=== PATIENT | female | born 1960 | race Caucasian/White ===

== ENCOUNTER 2016-12-20 07:14 | Inpatient (IN) | payer OTHER ==
[2016-12-20] MEDS ORDERED: Insulin REGULAR(*) 1 UNITS UNIT IV PUSH ONE (08:07)
[2016-12-20 08:19] LABS: Hematocrit 39 % (35-47); Mean Corpuscular HGB Conc 34 g/dl (31-36); Mean Corpuscular Hemoglobin 32 pg (27-31); Mean Corpuscular Volume 94 fL (80-97); Mean Platelet Volume 8 um3 (7.4-10.4); Red Blood Count 4.12 10^6/ul (4.0-5.4); Red Cell Distribution Width 15 % (10.5-15)
[2016-12-20 08:30] LABS: Albumin 3.3 g/dL (3.2-5.2); BUN/Creatinine Ratio 24.8 (8-20); C Reactive Protein 50.67 mg/L (< 5.00); Calcium 10.2 mg/dL (8.6-10.3); EGFR African American 66.3 (>60); EGFR Non-African American 51.6 (>60); Globulin 3.8 g/dL (2-4); Potassium 3.1 mmol/L (3.5-5.0); Total Bilirubin 0.3 mg/dL (0.2-1.0); Total Protein 7.1 g/dL (6.4-8.9)
[2016-12-20 08:32] LABS: Troponin I 0.01 ng/mL (<0.04)
[2016-12-20 08:46] LABS: Venous Bicarbonate HCO3 32.3 mmol/L (24-28)
[2016-12-20] MEDS: Ondansetron INJ* 2 MG/ML VIAL IV ONE ×2 (08:49→09:18)
[2016-12-20] MEDS: NS 0.9% 1000 ML* 3,000 ML IV ONE ×2 (08:49→11:03)
[2016-12-20] MEDS ORDERED: Cefepime(*) 2 GM in NS 0.9% 50 ML* 50 ML IVPB ONE (09:30)
[2016-12-20] MEDS ORDERED: Iodixanol* (CONTRAST) 320 MG/ML 100 ML SDV IV ONE (09:32)
[2016-12-20] MEDS ORDERED: ceFAZolin 2 GM PREMIX(*) 0 GM/0 ML BAG IVPB ONE (10:01)
[2016-12-20 10:08] LABS: Urine Bacteria 1+ (Absent); Urine Bilirubin Negative (Negative); Urine Glucose 3+(>=500 mg/dL) (Negative); Urine Nitrite Negative (Negative)
[2016-12-20] MEDS ORDERED: Ondansetron INJ* 2 MG/ML VIAL IV PRN (11:15)
[2016-12-20] MEDS ORDERED: Dextrose 50% Syringe 50 ML* 25 GM/50 ML SYRINGE IV PUSH PRN (11:15)
[2016-12-20] MEDS ORDERED: Acetaminophen TAB* 325 MG PO PRN (11:15)
[2016-12-20] MEDS ORDERED: NS 0.9% 1000 ML* 1,000 ML IV SCH (11:15)
--- NOTE | 2016-12-20 11:23 | RAD ---
INDICATION: Recent CABG with wound infection. Osteomyelitis. COMPARISON: None TECHNIQUE: Axial source images were obtained from the thoracic inlet to the hemidiaphragms. Coronal and sagittal reconstructed images were acquired. 80 mL Visipaque [id number] The visualized neck to include the thyroid appear normal. Chest wall: There is sternotomy with wound dehiscence. This CT cannot determine the presence of osteomyelitis but there are no bony erosive changes in the sternal wires appear intact There is subcutaneous stranding consistent with recent surgery. There is no localized subcutaneous collection to suggest abscess. There is no supraclavicular, infraclavicular, or axillary lymphadenopathy. Lungs : There are no pulmonary parenchymal masses or infiltrates. The pulmonary interstitium appears normal. There are no endobronchial lesions. Cardiomediastinal structures: The heart is normal in size. There is evidence of recent CABG. There is no pericardial effusion. There is no evidence of aortic aneurysm or dissection. The pulmonary vessels appear normal. There is no mediastinal or hilar adenopathy. The esophagus appears normal. There is mild stranding of the mediastinal fat anteriorly which may all be postsurgical in nature. There is no localized collection in the mediastinum. Pleura : There are no pleural-based masses or effusions. Other: There are no acute or significant CT findings of the visualized upper abdomen. IMPRESSION: No localized subcutaneous collection or intrathoracic abnormality that suggests an acute infectious process. Mild stranding of subcutaneous soft tissues at the incision site and mild stranding in the mediastinum may all be postsurgical in nature. There is wound dehiscence reportedly related to recent sternotomy/CABG. Suggest clinical evaluation of the wound and therapy as required if there is a wound infection or or if there is concern of osteomyelitis.
--- NOTE | 2016-12-20 11:52 | ED ---
Darwin Aquino Adam, scribed for iNxon Galvan MD on 12/20/16 at 0751 . Complex/Multi-Sys Presentation - HPI Summary HPI Summary: Pt is a 56 year old female presenting with concern about a possible wound infection. She had a CABG operation on 10/29 at [facility]. She was supposed to have her re-check appt [address] Oreilly (cardio) sent her back a week earlier because he was concerned about the appearance of the wound. The surgeon just told her to continue washing the wound. She started Cipro 4 days ago and went to wound care 3 days ago. She was told not to remove the dressing and packing until yesterday but 2 days ago she noticed that the tape holding down the gauze was not holding and there was pus leaking through. She put more gauze on but it has continued to leak through. She denies any change in the size of the wound. She decided to come to the ED after she vomited this morning. She reports feeling nauseous and thirsty. She also states that her blood glucose was 585 this morning (she is on insulin). She denies any fever, chills, CP, SOB, or abdominal pain. In addition to CAD and DM, pt has PMHx of HTN and HLD. She has been told that she has probably had multiple NJ's but she has never had symptoms. - History Of Current Complaint Chief Complaint: EDGeneral Time Seen by Provider: 12/20/16 07:35 Hx Obtained From: Patient Onset/Duration: Gradual Onset, Lasting Days, Still Present Timing: Constant Severity Currently: Moderate Severity Initially: Moderate Aggravating Factor(s): Nothing Alleviating Factor(s): Nothing Associated Signs And Symptoms: Positive: Nausea, Vomiting, Other - Pus leaking from wound site - Allergies/Home Medications Allergies/Adverse Reactions: Allergies Allergy/AdvReac Type Severity Reaction Status Date / Time Atorvastatin [From Lipitor] Allergy Unknown Verified 12/20/16 07:18 Reaction Details Lisinopril Allergy Unknown Verified 12/20/16 07:18 Reaction Details Penicillins Allergy Hives/Diff. Verified 12/20/16 07:18 Breathing/I tching Pravastatin Allergy Unknown Verified 12/20/16 07:18 Reaction Details Home Medications: Home Medications Ciprofloxacin TAB* [Cipro 500 MG TAB*] 500 mg PO BID 12/20/16 [History Confirmed 12/20/16] Hydrochlorothiazide TAB* [Hydrodiuril TAB*] 25 mg PO DAILY 12/20/16 [History Confirmed 12/20/16] Insulin Glargine [Basaglar Kwikpen] 10 unit SUBCUT QPM 12/20/16 [History Confirmed 12/20/16] Insulin Glargine [Basaglar Kwikpen] 20 unit SUBCUT QAM 12/20/16 [History Confirmed 12/20/16] Losartan TAB* [Cozaar TAB*] 50 mg PO DAILY 12/20/16 [History Confirmed 12/20/16] metFORMIN* [Glucophage 850 MG TAB *] 850 mg PO TID 12/20/16 [History Confirmed 12/20/16] PMH/Surg Hx/FS Hx/Imm Hx Endocrine/Hematology History: Reports: Hx Diabetes Cardiovascular History: Reports: Hx Coronary Artery Disease, Hx Hypertension Denies: Hx Pacemaker/ICD Respiratory History: Denies: Hx Asthma GI History: Reports: Hx Cirrhosis History: Reports: Hx Renal Disease - R/T DIABETES Musculoskeletal History: Reports: Hx Arthritis - HANDS, KNEES, Hx Back Problems - S/P disc surgery, Hx Fibromyalgia Sensory History: Reports: Hx Contacts or Glasses - DRIVING/READING Denies: Hx Hearing Aid Opthamlomology History: Reports: Hx Contacts or Glasses - DRIVING/READING Psychiatric History: Reports: Hx Depression Denies: Hx Panic Disorder - Cancer History Hx Chemotherapy: No Hx Radiation Therapy: No - Surgical History Surgery Procedure, Year, and Place: TUBAL LIGATION. DISKECTOMY L-4/5 Hx Anesthesia Reactions: No Infectious Disease History: No Infectious Disease History: Denies: Traveled Outside the [place] in Last 30 Days - Family History Known Family History: Positive: Other - Negative: breast cancer, malignant hyperthermia, anesthesia reaction - Social History Occupation: Employed Part-time Lives: With Family - Male domestic partner Alcohol Use: None Hx Substance Use: Yes Substance Use Type: Reports: Marijuana Substance Use Comment - Amount & Last Used: daily Hx Tobacco Use: Yes Smoking Status (MU): Former Smoker Type: Cigarettes Have You Smoked in the Last Year: No Review of Systems Negative: Fever, Chills Negative: Chest Pain Negative: Shortness Of Breath Positive: Vomiting, Nausea. Negative: Abdominal Pain Positive: Other - Pus leaking from sternotomy site All Other Systems Reviewed And Are Negative: Yes Physical Exam - Summary Physical Exam Summary: The patient is well-nourished in no acute distress and in no acute pain. Sternotomy incision with 2 areas of dehiscence. Mid area of wound is 1 x 2 x 1- 2 cm deep with purulent debris. Larger dehiscence of inferior aspect of wound is 3 x 1 x 1-2 cm deep; also drainage. The skin is warm and dry and skin color reflects adequate perfusion. HEENT: The head is normocephalic and atraumatic. The pupils are equal and reactive. The conjunctivae are clear and without drainage. Nares are patent and without drainage. Mouth reveals moist mucous membranes and the throat is without erythema and exudate. The external ears are intact. Neck is supple with full range of motion and non-tender. There are no carotid bruits. There is no neck vein distension. Respiratory: Chest is non-tender. Lungs are clear to auscultation and breath sounds are symmetrical and equal. Cardiovascular: Heart is regular rate and rhythm. There is no murmur or rub auscultated. There is no peripheral edema and pulses are symmetrical and equal. Abdomen: The abdomen is soft and non-tender. There are normal bowel sounds heard in all four quadrants and there is no organomegaly palpated. Musculoskeletal: Donor sites on the RLE and LLE with surrounding erythema. Neurological: Patient is alert and oriented to person, place and time. The patient has symmetrical motor strength in all four extremities. Cranial nerves are grossly intact. Deep tendon reflexes are symmetrical and equal in all four extremities. Psychiatric: The patient has an appropriate affect and does not exhibit any anxiety or depression. Triage Information Reviewed: Yes Vital Signs On Initial Exam: Initial Vitals Temp Pulse Resp BP Pulse Ox 97.9 F 100 18 174/91 100 12/20/16 07:18 12/20/16 07:18 12/20/16 07:18 12/20/16 07:18 12/20/16 07:18 Vital Signs Reviewed: Yes Diagnostics - Vital Signs Vital Signs Temp Pulse Resp BP Pulse Ox 12/20/16 07:18 97.9 F 100 18 174/91 100 - Laboratory Lab Results: Lab Results 12/20/16 12/20/16 12/20/16 Range/Units 08:00 08:00 08:00 WBC 6.0 (3.5-10.8) 10^3/ul RBC 4.12 (4.0-5.4) 10^6/ul Hgb 13.0 (12.0-16.0) g/dl Hct 39 (35-47) % MCV 94 (80-97) fL MCH 32 H (27-31) pg MCHC 34 (31-36) g/dl RDW 15 (10.5-15) % Plt Count 302 (150-450) 10^3/ul MPV 8 (7.4-10.4) um3 Neut % (Auto) 53.2 (38-83) % Lymph % (Auto) 30.3 (25-47) % [place] % (Auto) 15.4 H (1-9) % Eos % (Auto) 0.3 (0-6) % Baso % (Auto) 0.8 (0-2) % Absolute Neuts (auto) 3.2 (1.5-7.7) 10^3/ul Absolute Lymphs (auto) 1.8 (1.0-4.8) 10^3/ul Absolute Monos (auto) 0.9 H (0-0.8) 10^3/ul Absolute Eos (auto) 0 (0-0.6) 10^3/ul Absolute Basos (auto) 0 (0-0.2) 10^3/ul Absolute Nucleated RBC 0 10^3/ul Nucleated RBC % 0.1 INR (Anticoag Therapy) 0.88 L (0.89-1.11) APTT 26.5 (26.0-36.3) seconds VBG pH (7.33-7.43) VBG pCO2 (41-51) mmHg VBG pO2 (35-45) mmHg VBG HCO3 (24-28) mmol/L VBG O2 Saturation (70-80) % VBG Base Excess (0-4) Sodium 132 L (133-145) mmol/L Potassium 3.1 L (3.5-5.0) mmol/L Chloride 91 L (101-111) mmol/L Carbon Dioxide 32 (22-32) mmol/L Anion Gap 9 (2-11) mmol/L BUN 27 H (6-24) mg/dL Creatinine 1.09 H (0.51-0.95) mg/dL Est GFR ( Amer) 66.3 (>60) Est GFR (Non-Af Amer) 51.6 (>60) BUN/Creatinine Ratio 24.8 H (8-20) Glucose 341 H (70-100) mg/dL Lactic Acid (0.5-2.0) mmol/L Calcium 10.2 (8.6-10.3) mg/dL Total Bilirubin 0.30 (0.2-1.0) mg/dL AST 12 L (13-39) U/L ALT 18 (7-52) U/L Alkaline Phosphatase 90 (34-104) U/L Total Creatine Kinase 77 (10-223) U/L Troponin I 0.01 (<0.04) ng/mL C-Reactive Protein 50.67 H (< 5.00) mg/L Total Protein 7.1 (6.4-8.9) g/dL Albumin 3.3 (3.2-5.2) g/dL Globulin 3.8 (2-4) g/dL Albumin/Globulin Ratio 0.9 L (1-3) 12/20/16 12/20/16 Range/Units 08:00 08:34 WBC (3.5-10.8) 10^3/ul RBC (4.0-5.4) 10^6/ul Hgb (12.0-16.0) g/dl Hct (35-47) % MCV (80-97) fL MCH (27-31) pg MCHC (31-36) g/dl RDW (10.5-15) % Plt Count (150-450) 10^3/ul MPV (7.4-10.4) um3 Neut % (Auto) (38-83) % Lymph % (Auto) (25-47) % [place] % (Auto) (1-9) % Eos % (Auto) (0-6) % Baso % (Auto) (0-2) % Absolute Neuts (auto) (1.5-7.7) 10^3/ul Absolute Lymphs (auto) (1.0-4.8) 10^3/ul Absolute Monos (auto) (0-0.8) 10^3/ul Absolute Eos (auto) (0-0.6) 10^3/ul Absolute Basos (auto) (0-0.2) 10^3/ul Absolute Nucleated RBC 10^3/ul Nucleated RBC % INR (Anticoag Therapy) (0.89-1.11) APTT (26.0-36.3) seconds VBG pH 7.45 H (7.33-7.43) VBG pCO2 54 H (41-51) mmHg VBG pO2 25 L (35-45) mmHg VBG HCO3 32.3 H (24-28) mmol/L VBG O2 Saturation 42.1 L (70-80) % VBG Base Excess 11.4 H (0-4) Sodium (133-145) mmol/L Potassium (3.5-5.0) mmol/L Chloride (101-111) mmol/L Carbon Dioxide (22-32) mmol/L Anion Gap (2-11) mmol/L BUN (6-24) mg/dL Creatinine (0.51-0.95) mg/dL Est GFR ( Amer) (>60) Est GFR (Non-Af Amer) (>60) BUN/Creatinine Ratio (8-20) Glucose (70-100) mg/dL Lactic Acid 1.4 (0.5-2.0) mmol/L Calcium (8.6-10.3) mg/dL Total Bilirubin (0.2-1.0) mg/dL AST (13-39) U/L ALT (7-52) U/L Alkaline Phosphatase (34-104) U/L Total Creatine Kinase (10-223) U/L Troponin I (<0.04) ng/mL C-Reactive Protein (< 5.00) mg/L Total Protein (6.4-8.9) g/dL Albumin (3.2-5.2) g/dL Globulin (2-4) g/dL Albumin/Globulin Ratio (1-3) Result Diagrams: 12/20/16 08:00 12/20/16 08:00 Lab Statement: Any lab studies that have been ordered have been reviewed, and results considered in the medical decision making process. - CT CHEST CT Interpretation Completed By: Radiologist - IMPRESSION: No localized subcutaneous collection or intrathoracic abnormality that suggests an acute infectious process. Mild stranding of subcutaneous soft tissues at the incision site and mild stranding in the mediastinum may all be postsurgical in nature. There is wound dehiscence reportedly related to recent sternotomy/CABG. Suggest clinical evaluation of the wound and therapy as required if there is a wound infection or or if there is concern of osteomyelitis. - EKG 08:37 Cardiac Rate: NL - 86 BPM EKG Rhythm: Sinus Rhythm EKG Interpretation: No STEMI. Left axis. 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 - Additional Comments Diagnostic Additional Comments: Troponin I - 0.01 Re-Evaluation - Re-Evaluation First Eval Re-Evaluation Time: 08:32 - Pt is allergic to penicillin so we will need to use something besides Zosyn. Complex Multi-Symp Course/Dx - Diagnoses Differential Diagnoses/HQI/PQRI: Sepsis, Other - wound infection, dka Provider Diagnoses: Infected sternal wound, Hyperglycemia - Physician Notifications Discussed Care Of Patient With: Dr. Lujan (infectious disease) at 08:19. He recommended that the pt be admitted. He also recommended re-culturing the wound , starting the pt on Zosyn, and doing a CT of the chest to check for osteomyelitis. He will come in to see the pt. Dr. Lujan at approximately 09: 00. He recommended cefepime instead of Zosyn. - Critical Care Time Critical Care Time: 30-74 min - 30 minutes Discharge - Discharge Plan Condition: Stable Disposition: ADMITTED TO [facility] The documentation as recorded by the Darwin lyons Adam accurately reflects the service I personally performed and the decisions made by me, Nixon Galvan MD.
[2016-12-20] MEDS ORDERED: Cefepime(*) 2 GM in NS 0.9% 50 ML* 50 ML IVPB SCH (12:00)
[2016-12-20] MEDS: Insulin LISPRO* 1 UNITS UNIT SUBCUT SCH ×4 (13:43→17:56)
[2016-12-20] MEDS: Heparin VIAL(*) 5000 UNITS/ML VIAL (FIVE THOUSAND) SUBCUT SCH ×2 (13:50→22:09)
--- NOTE | 2016-12-20 15:40 | CONS ---
CONSULTATION REPORT: DATE OF CONSULT: 12/20/16 REQUESTING PROVIDER: Dr. Galvan. CONSULTING SERVICE: Infectious Disease. REASON FOR CONSULT: Sternal infection. IMPRESSION: 1. Status post coronary artery bypass graft, October 2016, now with a distal sternal incision wound infection, purulent drainage. Differential diagnosis does include sternal osteomyelitis, abscess, and sternal wire infection. 2. Now with hyperglycemia, hypokalemia, hypochloremia likely due to underlying infection and rapidly climbing C-reactive protein, suggesting progression of the infection. 3. Wound culture had been taken, December 17, Gram stain showed 4+ neutrophils, 4+ gram-negative bacilli, 4+ gram-positive cocci in chains, 2+ gram-positive bacilli, the culture so far growing prevotella, which I suspect may be part of the story, but not the primary pathogen. Another wound culture was taken this morning, same Gram stain culture, pending. 4. Insulin-dependent diabetes. 5. Coronary disease, status post coronary artery bypass graft. 6. PENICILLIN ALLERGY caused whole body rash. RECOMMENDATION: Cefepime 2 g every 12 hours IV, CT of the chest to rule out substernal abscess. Hopefully, will be able to evaluate for tunneling sinus tract. Pending those results, we will need to discuss the case with her CT surgeon. She has already been recommended to follow up with them, but has declined to do so because of the distance. I think it is reasonable to get another opinion from a surgeon in [place], which will be closer for her. She is aware that this is a potentially life-threatening infection. HISTORY OF PRESENT ILLNESS: This is a 56-year-old diabetic woman with coronary disease, she had a CABG, mid October 2016, recovered well and then about 5 to 6 weeks ago, developed redness and lack of healing of the distal pole of the sternal incision. The rest of the incision had healed up fine. She noticed slow progression of redness, swelling, and discharge from an opening in the incision. She saw her CT surgeon in [place], who told her it was fine. She called the surgeon again a couple of weeks later and was told to use Dial soap. Because of progression of the symptoms, she saw her senior speech pathologist, Dr. Oreilly, again last week, who was understandably alarmed at the condition of her sternal incision. He started her on Cipro and referred her to the wound clinic and to me. This morning, she woke with hyperglycemia and increasing malaise, increasing drainage from her sternum, so she came to the ER. She had been on Cipro for 2 or 3 days, tolerating well. She has distal wound, which continues to drain purulent fluid. She has no chest pain. No fevers, chills, or sweats, but she has decreased appetite and 25- pound weight loss since the surgery. PAST MEDICAL HISTORY: 1. Coronary disease, status post CABG. 2. Insulin-dependent diabetes. 3. Hyperlipidemia. 4. Osteoarthritis. 5. Hypertension. HOME MEDICATIONS: 1. Glipizide. 2. Telmisartan and hydrochlorothiazide combination. 3. Nitroglycerin tablet p.r.n. 4. Metoprolol. 5. Magnesium. 6. Losartan. 7. Linagliptin. 8. Imdur. 9. Zetia. 10. Cholecalciferol. 11. Aspirin. 12. Amlodipine. ALLERGIES: PENICILLIN caused full body rash in the distant past. LIPITOR caused myalgia. LISINOPRIL. FAMILY HISTORY: Father had bladder cancer. Mother with hypertension. SOCIAL HISTORY: She lives in [place]. No travel. No sick contacts. No injection drugs. REVIEW OF SYSTEMS: A full review of systems was negative except as noted above. PHYSICAL EXAM: Vital Signs: Temperature 36.6, heart rate 80, respiratory rate 12, blood pressure 170/80, O2 sat 96% on room air. General: She is awake, not in distress, not diaphoretic. Neurologic: She is oriented x3. Follows all commands. Moves all extremities. HEENT: There is no conjunctival hemorrhage. Oropharynx is without lesions. Neck is supple without nuchal rigidity. Lymph Nodes: There is no cervical, supraclavicular, inguinal, axillary, or epitrochlear lymphadenopathy. Heart has regular rate and rhythm without murmurs , rubs or gallops. Lungs are clear to auscultation bilaterally. Abdomen is soft, nontender, nondistended without hepatosplenomegaly. Skin: There is no rash or splinter hemorrhages. Musculoskeletal: There is no spine tenderness to palpation. No joint synovitis. Chest: The sternal incision is intact for two- thirds of the way from the top towards the distal pole where there are 2 separate, but communicating openings in the skin with healed edges with underlying palpable soft tissue and sternum with scant purulent material inside each hole. There is mild erythema around both wounds. LABORATORY DATA: White blood cell count 6, hemoglobin 13, platelets 302. Creatinine is 1.0. CRP is 50 up from on December 16. Blood culture taken December 16 was negative. Please see impressions and recommendations outlined above, which I have discussed with Dr. Galvan. Thanks for asking me to see Ms. Ceron in consultation. [id number]/[facility] #: [id number] DEBORA
--- NOTE | 2016-12-20 16:47 | RAD ---
Indication: Post median sternotomy for cardiac surgery October 29, 2016. Triple bypass. Assess for osteomyelitis. Comparison: December 20, [address] Technique: Noncontrast MRI region of the thorax. Glider.ioa 1.5 Alba [id number] with GEM suite. Report: There are 2 defects in the LEFT para midline anterior skin and subcutaneous tissue plane with the more cephalad wound measuring up to 2.0 cm in depth and the deeper open wound measuring up to 2.4 cm in depth. At both levels intervening fat is visualized between the bones and the subjacent muscular fascia and sternum. There is surrounding T2 hyperintense signal within the subcutaneous tissue at the level of the described open wounds and cephalad to the level of the jugular notch without evidence for a loculated soft tissue plane fluid collection to indicate abscess. Assessment of the manubrium and sternum is limited due to artifact from the sternotomy wires. There is no gross focal bone marrow edema or periosteal fluid at the sternum. No pleural or pericardial fluid evident within the [id number]. IMPRESSION: LEFT para midline anterior open subcutaneous wound without gross evidence for contiguous direct extension to the sternum. Assessment for marrow signal abnormality within the sternum is limited due to presence of median sternotomy wires without gross abnormality. Soft tissue inflammatory change suspicious for cellulitis given the clinical context without a loculated soft tissue plane abscess collection.
[2016-12-20] MEDS ORDERED: Potassium Chlor TAB* 20 MEQ TAB.ER PO ONE (17:02)
--- NOTE | 2016-12-20 17:56 | PN ---
Hospitalist Progress Note Initial evaluation of wound upon assessment. Wound dehiscence median sternotomy incision. Top wound: 1 x 2 x 1-2 cm deep Inferior aspect: ~3 x 1 x 2 cm deep
--- NOTE | 2016-12-20 19:41 | HP ---
MEDICINE HISTORY AND PHYSICAL: DATE OF ADMISSION: 12/20/16 PROVIDER: Norberto Ying NP ATTENDING PHYSICIAN: Dr. Kevin Keene *(as dictated by Norberto Ying NP). CONSULTING PHYSICIAN: Dr. Yovanny Moncada, Infectious Disease. PRIMARY CARE PROVIDER: Dr. Lanier. CARDIOLOGY: 1. Dr. Gonzalo Oreilly. 2. Dr. West in [place]. CHIEF COMPLAINT: Wound dehiscence. HISTORY OF PRESENT ILLNESS: Ms. Ceron is a 56-year-old female with a past medical history significant for recent coronary artery bypass graft for LAD disease, who presented to the ER today with concern for increased drainage from her surgical wounds, nausea, and vomiting. Following the surgery, Dr. Oreilly had apparently had concern for the appearance of the wound and sent the patient to Dr. West. At that time, the wound was not yet weeping. The patient states that a few weeks ago, she noted that her wound started having clear drainage. Per the patient, she contacted Dr. West, who reportedly told her that a clear drainage was okay and that she should continue keeping wound clean by using Dial soap. As time progressed, the wound became more malodorous and the drainage became more profuse and thicker. She was seen by her local physician and referred to the wound clinic urgently. Apparently, she was unable to make it to [place] for followup with Dr. West. It is noted that in the computer, she had her first initial visit with the wound care center here at [facility] on 12/17/16. She states that at that time they gisella blood cultures and that she was started on antibiotics and her wound was debrided and packed. She states that she was instructed to take her packing out on Tuesday. However, she states that her wound was draining copious drainage and that the packing actually fell off on Tuesday. She kept the wound covered. However, today on Tuesday, she states that she started having nausea and vomiting. Per the instructions that were given to her by the wound care clinic, she thought that she should come in for further evaluation for her wound. She also reports body aches, but denies any fever or chills at home. She also notes increased blood sugars at home stating they have been as high as 500. She has had poor p.o. intake due to not feeling well. PAST MEDICAL HISTORY: Includes: 1. Coronary artery disease, status post CABG earlier this year. 2. Hypertension. 3. Insulin-dependent diabetes mellitus. 4. Hypercholesterolemia. 5. Arthritis. 6. Fibromyalgia. 7. History of toxic shock syndrome. 8. History of bone spurs and torn meniscus. PAST SURGICAL HISTORY: Includes: 1. L4-L5 microdiskectomy. 2. Tubal ligation. MEDICATIONS: 1. Ciprofloxacin 500 mg b.i.d. 2. Burdock root 2-475 mcg b.i.d. 3. Turmeric 580 mg b.i.d. 4. Insulin lispro 5 units subcu t.i.d. a.c. 5. Victoza 0.6 mg subcu daily. 6. Insulin glargine 25 units b.i.d. 7. Metformin 850 mg t.i.d. 8. Losartan 50 mg daily. 9. Hydrochlorothiazide 25 mg daily. 10. Zetia 10 mg daily. 11. Metoprolol tartrate 50 mg b.i.d. 12. Aspirin 81 mg daily. ALLERGIES: Include ATORVASTATIN, which causes polymyalgias; PENICILLIN, which causes rash; LISINOPRIL, which causes cough. FAMILY HISTORY: She reports her mother with history of CVA and a dad who had cancer. SOCIAL HISTORY: She is a former smoker. She quit approximately 7 years ago, reports cmih-wbvl-[id number]-day smoking history for approximately 30 years. She denies any alcohol or recreational drug use. She works as a harvest manager for an elderly gentleman. She has a significant other who she lives with. His name is Lorne Dillard and he is the surrogate decision maker for her in the event of emergency. REVIEW OF SYSTEMS: A 14-point review of systems was completed. All pertinent positives and negatives are included in the HPI . All those not mentioned are negative. PHYSICAL EXAMINATION GENERAL: Ms. Ceron is a 56-year-old female who is sitting up in the ED stretcher, in no acute distress. VITAL SIGNS: Temperature 98.1, heart rate 86, respiratory rate 18, blood pressure 166/77, and O2 saturation 98% on room air. HEENT: Head is atraumatic, normocephalic. Face is symmetrical. Pupils are equal, round, reactive to light. Sclerae are anicteric. External ears and nose are normal. Oral mucosa appears moist. NECK: Supple. No lymphadenopathy appreciated. RESPIRATORY: Lungs are clear to auscultation. CHEST: There is a vertical sternal incision with surrounding erythema. It is nontender to the touch. There are two open surgical dehisced wounds that have notable exudate and purulent drainage. Upon palpation of the sternum, I did not notice any instability or slippage of the sternum with palpation. The mid area of the wound is 1 x 2 x 1 to 2 cm deep and the larger dehiscence of the inferior aspect of the wound is 3 x 1 x 1 to 2 cm deep. CARDIAC: S1, S2 heart sounds. Regular rate and rhythm. No murmurs, rubs, or gallops. No peripheral edema noted. Distal pulses are 2+ and equal. ABDOMEN: Soft, nontender, nondistended. Bowel sounds present times all 4 quadrants. MUSCULOSKELETAL: There is no clubbing or cyanosis. Donor site is noted to the lower extremities with surrounding erythema. The patient has full range of motion. NEURO: Cranial nerves II through XII are grossly intact. The patient is able to move all extremities. Sensation is intact to light touch. PSYCH: She is alert and oriented x3. Her affect was appropriate. SKIN: Again, there is vertical incision with wound dehiscence to the chest and evidence of vein harvest site to lower extremities. DIAGNOSTIC STUDIES/LAB DATA: CBC: WBC 6.0, hemoglobin 13.0, hematocrit 39, platelet count 302. INR was 0.88. CMP: Sodium 132, potassium 3.1, chloride 91 , carbon dioxide 32, BUN 27, creatinine 1.09, glucose 341, lactic acid 1.4, calcium 10.2. Total bilirubin 0.3, AST 12, ALT 18, alk phos 90. Troponin 0.01. CRP 50.67. Albumin 3.3. Urinalysis is positive for 1+ protein, 1+ bacteria, 3+ glucose though no nitrites or leukocyte esterase. EKG shows sinus rhythm. There is borderline left axis deviation. No signs of acute ischemia. CT of the chest, impression: No localized subcutaneous collection or intrathoracic abnormality that suggest an acute infectious process. Mild stranding of subcutaneous soft tissues of the incision site and mild stranding in the mediastinum, may all be postsurgical in nature. There is wound dehiscence reportedly related to recent sternotomy/CABG. Suggests critical evaluation of the wound and therapy as required if there is a wound infection or if there is concern of osteomyelitis. ASSESSMENT AND PLAN: Ms. Ceron is a 56-year-old female, who is admitted with concern for wound dehiscence and infection over the sternum, as well as hyperglycemia. She will be admitted to the medicine floor and the plan is as follows: 1. Sternal wound infection and wound dehiscence. The patient was seen by ID in the ER. As there was no evidence of localized abscess, we will admit the patient and continue her on cefepime 2 g q.12 hours per the instruction of ID. There is no conclusive evidence of osteomyelitis on the CT scan; therefore, we will obtain an MRI of the chest. Additionally, I will order a wound consult to continue wound care for the patient. A wound culture was done in the ER; it is pending. We will also work on achieving tighter glucose control in the presence of an acute infection. Blood cultures are pending. 2. Insulin-dependent diabetes mellitus. The patient will be continued on her home Lantus and will be on an insulin coverage. We will plan for meal-time coverage, as well as sliding scale coverage. At this time, we will hold her metformin and Victoza as that is not available here. We will also check an A1c. The patient will likely benefit from asthma educator consult. 3. Hypertension. The patient is mildly hypertensive at this time. We will continue her home medications of metoprolol. I will hold her hydrochlorothiazide at this time. She appears to have evidence of chronic kidney disease. We will go ahead and continue her on losartan with close monitoring of her BUN and creatinine. 4. Chronic kidney disease. The patient's baseline creatinine appears to be between 1.02 and 1.3, so she is within her baseline at this time. Continue to follow. 5. Hypercholesterolemia. Continue Zetia. 6. Coronary artery disease. Continue aspirin, beta neetu, and Zetia. 7. FEN. She is ordered a consistent carbohydrate diet. 8. DVT prophylaxis. The patient is ordered subcu heparin. 9. Code status. She is a full code. TIME SPENT: Time spent on this admission was approximately 65 minutes, more than half that time was spent [id number] with the patient obtaining history and physical, performing physical examination, and reviewing the plan of care. Plan of care also reviewed with my attending, Dr. Keene, who is in agreement. NORBERTO YING NP CC: Dr. Lanier; Dr. Gonzalo Oreilly * [id number]/CPS #: [id number] MTDD
[2016-12-20] MEDS: Cefepime(*) 2 GM in NS 0.9% 50 ML* 50 ML IVPB SCH (22:08)
[2016-12-20] MEDS: Insulin GLARGINE(*) 1 UNITS UNIT SUBCUT SCH (22:09)
[2016-12-20] MEDS: Metoprolol Tartrate TAB* 50 mg PO SCH (22:09)
[2016-12-21] MEDS: CMCS Melatonin (NF) 3 MG TAB PO SCH ×2 (00:51→19:56)
[2016-12-21] MEDS ORDERED: CMCS Melatonin (NF) 3 MG TAB PO SCH (01:00)
[2016-12-21 05:40] LABS: Hematocrit 35 % (35-47); Hemoglobin 11.8 g/dl (12.0-16.0); Mean Corpuscular HGB Conc 34 g/dl (31-36); Mean Corpuscular Hemoglobin 32 pg (27-31); Mean Corpuscular Volume 94 fL (80-97); Mean Platelet Volume 9 um3 (7.4-10.4); Red Blood Count 3.74 10^6/ul (4.0-5.4); Red Cell Distribution Width 15 % (10.5-15); White Blood Count 6.1 10^3/ul (3.5-10.8)
[2016-12-21 05:53] LABS: C Reactive Protein 56.56 mg/L (< 5.00); Calcium 9.5 mg/dL (8.6-10.3); EGFR African American 73.2 (>60); EGFR Non-African American 56.9 (>60); Potassium 3.4 mmol/L (3.5-5.0)
[2016-12-21] MEDS: Heparin VIAL(*) 5000 UNITS/ML VIAL (FIVE THOUSAND) SUBCUT SCH ×3 (06:13→22:20)
--- NOTE | 2016-12-21 07:54 | PN ---
Subjective Date of Service: 12/21/16 Interval History: Pt reports she "feels a little better" denies fever or chills. No pain. Reports some drainage from wounds site with noted saturated dressing. Reports good appetite, no further nausea or vomiting. Denies SOB or CP Objective Active Medications: Acetaminophen (Tylenol Tab*) 650 mg PO Q4H PRN PRN Reason: FEVER/PAIN Aspirin (Aspirin Ec Low Dose*) 81 mg PO DAILY [facility] Dextrose (D50w Syringe 50 Ml*) 12.5 gm IV PUSH .FOR FS < 60 - SS PRN PRN Reason: FS < 60 Ezetimibe (Zetia Tab*) 10 mg PO DAILY [facility] Heparin Sodium (Porcine) (Heparin Vial(*)) 5,000 units SUBCUT Q8HR [facility] Last Admin: 12/21/16 06:13 Dose: 5,000 units Sodium Chloride (Ns 0.9% 1000 Ml*) 1,000 mls @ 75 mls/hr IV PER RATE [facility] Last Admin: 12/20/16 12:22 Dose: 75 mls/hr Cefepime HCl 2 gm/ Sodium (Chloride) 50 mls @ 100 mls/hr IVPB 1000,2200 [facility] Last Admin: 12/20/16 22:08 Dose: 100 mls/hr Insulin Glargine (Lantus(*)) 25 units SUBCUT Q12H [facility] Last Admin: 12/20/16 22:09 Dose: 25 units Insulin Human Lispro (Humalog*) 0 units SUBCUT AC [facility] PRN Reason: Protocol Last Admin: 12/20/16 17:54 Dose: 3 units Insulin Human Lispro (Humalog*) 0 units SUBCUT AC [facility] PRN Reason: Protocol Last Admin: 12/20/16 17:56 Dose: 3 units Losartan Potassium (Cozaar Tab*) 50 mg PO DAILY [facility] Melatonin (Melatonin (Nf)) 3 mg PO BEDTIME [facility] Last Admin: 12/21/16 00:51 Dose: 3 mg Metoprolol Tartrate (Lopressor Tab*) 50 mg PO BID [facility] Last Admin: 12/20/16 22:09 Dose: 50 mg Ondansetron HCl (Zofran Inj*) 4 mg IV Q6H PRN PRN Reason: NAUSEA Last Admin: 12/20/16 16:45 Dose: 4 mg Vital Signs 12/20/16 12/20/1617 09:32 10:24 10:26 Temperature Pulse Rate 86 86 86 Respiratory Rate Blood Pressure 162/77 (mmHg) O2 Sat by Pulse 93 98 97 Oximetry 12/20/16 12/20/16 12/20/16 10:30 12:06 12:10 Temperature 98.1 F 98.1 F Pulse Rate 91 91 Respiratory 18 18 Rate Blood Pressure 166/77 161/83 161/83 (mmHg) O2 Sat by Pulse 100 100 Oximetry 12/20/16 12/20/16 12/20/16 16:39 19:34 20:00 Temperature 98.2 F 98.8 F Pulse Rate 100 107 Respiratory 16 16 16 Rate Blood Pressure 152/64 144/63 (mmHg) O2 Sat by Pulse 96 96 96 Oximetry 12/20/16 23:10 Temperature 98.8 F Pulse Rate 91 Respiratory 16 Rate Blood Pressure 155/76 (mmHg) O2 Sat by Pulse 95 Oximetry Oxygen Devices in Use Now: None Appearance: obese female laying in bed A+O x3 in NAD, resting Eyes: No Scleral Icterus, PERRLA Ears/Nose/Mouth/Throat: NL Teeth, Lips, Gums, Mucous Membranes Moist Neck: NL Appearance and Movements; NL JVP Respiratory: Symmetrical Chest Expansion and Respiratory Effort, Clear to Auscultation Cardiovascular: NL Sounds; No Murmurs; No JVD, RRR, No Edema Abdominal: NL Sounds; No Tenderness; No Distention, - - obese Extremities: No Edema, No Clubbing, Cyanosis Skin: - - 2 open sternal wounds draining clear fluid, milded erythema noted surrounding both wounds Neurological: Alert and Oriented x 3, NL Sensation, NL Gait, NL Muscle Strength and Tone Lines/Tubes/Other Access: Clean, Dry and Intact Peripheral IV Nutrition: Taking PO's Result Diagrams: 12/21/16 05:03 12/21/16 05:03 Additional Lab and Data: Lab Results 12/20/16 12/20/16 12/20/16 Range/Units 08:00 08:00 08:00 WBC 6.0 (3.5-10.8) 10^3/ul RBC 4.12 (4.0-5.4) 10^6/ul Hgb 13.0 (12.0-16.0) g/dl Hct 39 (35-47) % MCV 94 (80-97) fL MCH 32 H (27-31) pg MCHC 34 (31-36) g/dl RDW 15 (10.5-15) % Plt Count 302 (150-450) 10^3/ul MPV 8 (7.4-10.4) um3 Neut % (Auto) 53.2 (38-83) % Lymph % (Auto) 30.3 (25-47) % Morrow % (Auto) 15.4 H (1-9) % Eos % (Auto) 0.3 (0-6) % Baso % (Auto) 0.8 (0-2) % Absolute Neuts (auto) 3.2 (1.5-7.7) 10^3/ul Absolute Lymphs (auto) 1.8 (1.0-4.8) 10^3/ul Absolute Monos (auto) 0.9 H (0-0.8) 10^3/ul Absolute Eos (auto) 0 (0-0.6) 10^3/ul Absolute Basos (auto) 0 (0-0.2) 10^3/ul Absolute Nucleated RBC 0 10^3/ul Nucleated RBC % 0.1 INR (Anticoag Therapy) 0.88 L (0.89-1.11) APTT 26.5 (26.0-36.3) seconds VBG pH (7.33-7.43) VBG pCO2 (41-51) mmHg VBG pO2 (35-45) mmHg VBG HCO3 (24-28) mmol/L VBG O2 Saturation (70-80) % VBG Base Excess (0-4) Sodium 132 L (133-145) mmol/L Potassium 3.1 L (3.5-5.0) mmol/L Chloride 91 L (101-111) mmol/L Carbon Dioxide 32 (22-32) mmol/L Anion Gap 9 (2-11) mmol/L BUN 27 H (6-24) mg/dL Creatinine 1.09 H (0.51-0.95) mg/dL Est GFR ( Amer) 66.3 (>60) Est GFR (Non-Af Amer) 51.6 (>60) BUN/Creatinine Ratio 24.8 H (8-20) Glucose 341 H (70-100) mg/dL Lactic Acid (0.5-2.0) mmol/L Calcium 10.2 (8.6-10.3) mg/dL Total Bilirubin 0.30 (0.2-1.0) mg/dL AST 12 L (13-39) U/L ALT 18 (7-52) U/L Alkaline Phosphatase 90 (34-104) U/L Total Creatine Kinase 77 (10-223) U/L Troponin I 0.01 (<0.04) ng/mL C-Reactive Protein 50.67 H (< 5.00) mg/L Total Protein 7.1 (6.4-8.9) g/dL Albumin 3.3 (3.2-5.2) g/dL Globulin 3.8 (2-4) g/dL Albumin/Globulin Ratio 0.9 L (1-3) 12/20/16 12/20/16 Range/Units 08:00 08:34 WBC (3.5-10.8) 10^3/ul RBC (4.0-5.4) 10^6/ul Hgb (12.0-16.0) g/dl Hct (35-47) % MCV (80-97) fL MCH (27-31) pg MCHC (31-36) g/dl RDW (10.5-15) % Plt Count (150-450) 10^3/ul MPV (7.4-10.4) um3 Neut % (Auto) (38-83) % Lymph % (Auto) (25-47) % Morrow % (Auto) (1-9) % Eos % (Auto) (0-6) % Baso % (Auto) (0-2) % Absolute Neuts (auto) (1.5-7.7) 10^3/ul Absolute Lymphs (auto) (1.0-4.8) 10^3/ul Absolute Monos (auto) (0-0.8) 10^3/ul Absolute Eos (auto) (0-0.6) 10^3/ul Absolute Basos (auto) (0-0.2) 10^3/ul Absolute Nucleated RBC 10^3/ul Nucleated RBC % INR (Anticoag Therapy) (0.89-1.11) APTT (26.0-36.3) seconds VBG pH 7.45 H (7.33-7.43) VBG pCO2 54 H (41-51) mmHg VBG pO2 25 L (35-45) mmHg VBG HCO3 32.3 H (24-28) mmol/L VBG O2 Saturation 42.1 L (70-80) % VBG Base Excess 11.4 H (0-4) Sodium (133-145) mmol/L Potassium (3.5-5.0) mmol/L Chloride (101-111) mmol/L Carbon Dioxide (22-32) mmol/L Anion Gap (2-11) mmol/L BUN (6-24) mg/dL Creatinine (0.51-0.95) mg/dL Est GFR ( Amer) (>60) Est GFR (Non-Af Amer) (>60) BUN/Creatinine Ratio (8-20) Glucose (70-100) mg/dL Lactic Acid 1.4 (0.5-2.0) mmol/L Calcium (8.6-10.3) mg/dL Total Bilirubin (0.2-1.0) mg/dL AST (13-39) U/L ALT (7-52) U/L Alkaline Phosphatase (34-104) U/L Total Creatine Kinase (10-223) U/L Troponin I (<0.04) ng/mL C-Reactive Protein (< 5.00) mg/L Total Protein (6.4-8.9) g/dL Albumin (3.2-5.2) g/dL Globulin (2-4) g/dL Albumin/Globulin Ratio (1-3) Assess/Plan/Problems-Billing Assessment: 56 yo female with a PMH of Insulin dependent diabetes, s/p CABG 2016 who developed a post-op sternal surgical incision infection recently started on Cipro who presented to the ED 12/20 with increasing malaise, hyperglycemia and increasing wound drainage from sternum. - Patient Problems (1) Postoperative infection of wound of sternum Comment: - No sepsis noted, no leukocytosis, afebrile, CRP 56 - ID following - continue cefepime. wound cx growing strep no sensitivity as of yet, blood cx no growth day 1. Will discuss case with ID today. - MRI chest - left para midline anterior open subcutaneous wound w/o gross evidence for contiguous direct extension to the sternum. suspicious for cellulitis w/o loculated soft tissue abscess. - Wound Care Consult: "Ms. Ceron is a [facility] of [facility]. 2 sternal wounds: Proximal 1.3 cm x 1.3 cm x 1.9 cm Wound undermines from 1:00 - 7:00 with a maximum depth of 3.7 cm at 2:00 and has a tunnel at 1:00 measuring 5.3 cm. Distal measures 2.8 cm x 1 cm x 1.6 cm with a tunnel at 12: 00 measuring 3.2 cm. Recommend irrigation with saline daily and packing with 1/ 2 plain packing tape, cover with 4x4s/ABDs and secure with paper tape or hypafix tape". (2) Insulin dependent diabetes mellitus Comment: - hold home oral medications. Continue Lispro SS with lantus home dose. (3) HTN (hypertension) Comment: - SBP 150's - Continue home dose metoprolol and restart HCTZ (4) CKD (chronic kidney disease) Comment: - appears to be at baseline (5) CAD (coronary artery disease) Comment: - asymptomatic. Contonue home meds metoprolol, ASA, Zetia (6) Electrolyte abnormality Comment: - replace potassium, check magnesium level (7) DVT prophylaxis Comment: HSQ (8) Full code status Status and Disposition: inpatient with post-surgical wound infection requiring IV antibiotics.
[2016-12-21] MEDS: Losartan TAB* 25 MG PO SCH (09:01)
[2016-12-21] MEDS: Cefepime(*) 2 GM in NS 0.9% 50 ML* 50 ML IVPB SCH (09:01)
[2016-12-21] MEDS: Insulin GLARGINE(*) 1 UNITS UNIT SUBCUT SCH ×2 (09:02→19:57)
[2016-12-21] MEDS: Insulin LISPRO* 1 UNITS UNIT SUBCUT SCH ×6 (09:02→17:51)
[2016-12-21] MEDS: Ezetimibe TAB* 10 MG PO SCH (09:02)
[2016-12-21] MEDS: Aspirin EC Low Dose* 81 MG TAB.EC PO SCH (09:02)
[2016-12-21] MEDS: Metoprolol Tartrate TAB* 50 mg PO SCH ×2 (09:02→19:57)
[2016-12-21] MEDS ORDERED: Potassium Chlor TAB* 20 MEQ TAB.ER PO ONE (11:48)
[2016-12-21 12:07] LABS: Magnesium 1.6 mg/dL (1.9-2.7)
[2016-12-21] MEDS ORDERED: Docusate CAP* 100 MG PO ONE (15:17)
--- NOTE | 2016-12-21 15:39 | PN ---
Progress Note - Progress Note SOAP: Subjective: DOS: 12/21/16 CC:chest wound HPI: 56 yo woman s/p CAB who has a distal sternal wound with purulent drainage. On antibiotics and fluids, insulin, hyperglycemia improved. No fever, rash, or diarrhea. Objective: [] Vital Signs Temp 36.9 C 12/21/16 07:54 Pulse 87 12/21/16 07:54 Resp 16 12/21/16 11:37 BP 154/91 12/21/16 07:54 Pulse Ox 96 12/21/16 07:54 Intake & Output 12/20/16 12/21/16 12/21/16 18:59 06:59 18:59 Intake Total 1950 50 350 Balance 1950 50 350 Weight 231 lb 1.6 oz Intake: IV Fluids 1050 IVPB 50 ABX - CEFEPIME 50 Oral 900 0 350 Other: Estimated Void Medium Medium Medium # Bowel Movements 0 # Voids 1 1 3 Gen:Awake, no distress Neuro: CN 2-12 intact, Ox3 HEENT:PERRL, MMM Neck:Supple Heart:RRR no murmur Lungs:CTA BL Abd:+BS NTND soft Skin: no rash Chest: distal sternal wound x2, purulent drainage Laboratory Results - last 24 hr 12/20/16 12/20/16 12/21/16 16:31 22:08 05:03 WBC 6.1 RBC 3.74 L Hgb 11.8 L Hct 35 MCV 94 MCH 32 H MCHC 34 RDW 15 Plt Count 282 MPV 9 Neut % (Auto) 43.2 Lymph % (Auto) 39.2 Darke % (Auto) 15.4 H Eos % (Auto) 1.3 Baso % (Auto) 0.9 Absolute Neuts (auto) 2.6 Absolute Lymphs (auto) 2.4 Absolute Monos (auto) 0.9 H Absolute Eos (auto) 0.1 Absolute Basos (auto) 0.1 Absolute Nucleated RBC 0 Nucleated RBC % 0 Sodium Potassium Chloride Carbon Dioxide Anion Gap BUN Creatinine Est GFR ( Amer) Est GFR (Non-Af Amer) BUN/Creatinine Ratio Glucose POC Glucose (mg/dL) 164 H 188 H Calcium Magnesium C-Reactive Protein 12/21/16 12/21/16 12/21/16 05:03 07:55 11:32 WBC RBC Hgb Hct MCV MCH MCHC RDW Plt Count MPV Neut % (Auto) Lymph % (Auto) Darke % (Auto) Eos % (Auto) Baso % (Auto) Absolute Neuts (auto) Absolute Lymphs (auto) Absolute Monos (auto) Absolute Eos (auto) Absolute Basos (auto) Absolute Nucleated RBC Nucleated RBC % Sodium 137 Potassium 3.4 L Chloride 100 L Carbon Dioxide 30 Anion Gap 7 BUN 15 Creatinine 1.00 H Est GFR ( Amer) 73.2 Est GFR (Non-Af Amer) 56.9 BUN/Creatinine Ratio 15.0 Glucose 186 H POC Glucose (mg/dL) 159 H 149 H Calcium 9.5 Magnesium 1.6 L C-Reactive Protein 56.56 H Assessment: 1. Sternal wound infection without abscess but likely osteomeylitis, acute due to Viridans Grp Strep 2. CAD s/p CAB 3. PCN allergy, tolerating cefepime well 4. elevated CRP 5. T2DM Plan: 1change abx to ceftriaxone 2 gm daily, PICC ordered will plan 4 weeks IV abx with weekly cbc, cmp, crp Discussed with Elin Hutchinson NP
[2016-12-21] MEDS: Polyethylene Glycol 3350* 17 GM PACKET PO SCH (19:55)
[2016-12-21] MEDS ORDERED: diPHENhydraMINE PO* 25 MG PO PRN (21:00)
[2016-12-22] MEDS: Heparin VIAL(*) 5000 UNITS/ML VIAL (FIVE THOUSAND) SUBCUT SCH ×2 (06:09→13:24)
[2016-12-22 06:32] LABS: Hematocrit 35 % (35-47); Hemoglobin 11.8 g/dl (12.0-16.0); Mean Corpuscular HGB Conc 34 g/dl (31-36); Mean Corpuscular Hemoglobin 32 pg (27-31); Mean Corpuscular Volume 94 fL (80-97); Mean Platelet Volume 8 um3 (7.4-10.4); Red Blood Count 3.71 10^6/ul (4.0-5.4); Red Cell Distribution Width 15 % (10.5-15); White Blood Count 5.7 10^3/ul (3.5-10.8)
[2016-12-22 06:38] LABS: Add Diff/Slide Review? Slide Review Added
[2016-12-22 06:54] LABS: BUN/Creatinine Ratio 19.4 (8-20); Calcium 9.2 mg/dL (8.6-10.3); EGFR African American 79.6 (>60); EGFR Non-African American 61.9 (>60); Magnesium 1.8 mg/dL (1.9-2.7); Potassium 3.6 mmol/L (3.5-5.0)
[2016-12-22 08:43] VITALS: BP 158/96
[2016-12-22] MEDS ORDERED: Hydrochlorothiazide TAB* 25 MG PO SCH (09:00)
[2016-12-22] MEDS: Ezetimibe TAB* 10 MG PO SCH (09:41)
[2016-12-22] MEDS: Losartan TAB* 25 MG PO SCH (09:42)
[2016-12-22] MEDS: Metoprolol Tartrate TAB* 50 mg PO SCH (09:42)
[2016-12-22] MEDS: Aspirin EC Low Dose* 81 MG TAB.EC PO SCH (09:42)
[2016-12-22] MEDS: Insulin LISPRO* 1 UNITS UNIT SUBCUT SCH ×4 (09:43→13:23)
[2016-12-22] MEDS: Polyethylene Glycol 3350* 17 GM PACKET PO SCH (09:44)
[2016-12-22] MEDS: Insulin GLARGINE(*) 1 UNITS UNIT SUBCUT SCH (09:44)
[2016-12-22] MEDS ORDERED: Magnesium Sulfate 2 GM IV* 2 GM/50 ML BAG IVPB ONE (09:56)
--- NOTE | 2016-12-22 10:52 | PN ---
Progress Note - Progress Note SOAP: Subjective: DOS: 12/22/16 CC:chest wound HPI: 56 yo woman s/p CAB who has a distal sternal wound with purulent drainage. Drainage from wound is decreased since yesterday, no pain. No fever, rash, or diarrhea. Objective: [] Vital Signs Temp 36.4 C 12/22/16 07:33 Pulse 79 12/22/16 07:33 Resp 18 12/22/16 08:00 BP 158/96 12/22/16 07:33 Pulse Ox 98 12/22/16 08:00 Intake & Output 12/21/16 12/22/16 12/22/16 18:59 06:59 18:59 Intake Total 403 656 Balance 403 656 Intake: IV Fluids 176 ABX - CEFTRIAXONE 113 NS (0.9%) 63 IVPB 53 mag 3 53 Oral 350 480 Other: Estimated Void Medium # Bowel Movements 0 # Voids 3 4 Gen:Awake, no distress Neuro: CN 2-12 intact, Ox3 HEENT:PERRL, MMM Neck:Supple Heart:RRR no murmur Lungs:CTA BL Abd:+BS NTND soft Skin: no rash Chest: distal sternal wound x2, purulent drainage Laboratory Results - last 24 hr 12/21/16 12/21/16 12/21/16 05:03 11:32 16:41 WBC RBC Hgb Hct MCV MCH MCHC RDW Plt Count MPV Neut % (Auto) Lymph % (Auto) Vermilion % (Auto) Eos % (Auto) Baso % (Auto) Absolute Neuts (auto) Absolute Lymphs (auto) Absolute Monos (auto) Absolute Eos (auto) Absolute Basos (auto) Absolute Nucleated RBC Nucleated RBC % Sodium Potassium Chloride Carbon Dioxide Anion Gap BUN Creatinine Est GFR ( Amer) Est GFR (Non-Af Amer) BUN/Creatinine Ratio Glucose POC Glucose (mg/dL) 149 H 150 H Calcium Magnesium 1.6 L 12/21/16 12/22/16 12/22/16 19:44 06:03 06:03 WBC 5.7 RBC 3.71 L Hgb 11.8 L Hct 35 MCV 94 MCH 32 H MCHC 34 RDW 15 Plt Count 272 MPV 8 Neut % (Auto) 31.5 L Lymph % (Auto) 52.6 H Vermilion % (Auto) 13.2 H Eos % (Auto) 1.9 Baso % (Auto) 0.8 Absolute Neuts (auto) 1.8 Absolute Lymphs (auto) 3.0 Absolute Monos (auto) 0.8 Absolute Eos (auto) 0.1 Absolute Basos (auto) 0 Absolute Nucleated RBC 0 Nucleated RBC % 0 Sodium 135 Potassium 3.6 Chloride 103 Carbon Dioxide 28 Anion Gap 4 BUN 18 Creatinine 0.93 Est GFR ( Amer) 79.6 Est GFR (Non-Af Amer) 61.9 BUN/Creatinine Ratio 19.4 Glucose 188 H POC Glucose (mg/dL) 240 H Calcium 9.2 Magnesium 1.8 L 12/22/16 07:22 WBC RBC Hgb Hct MCV MCH MCHC RDW Plt Count MPV Neut % (Auto) Lymph % (Auto) [place]ilion % (Auto) Eos % (Auto) Baso % (Auto) Absolute Neuts (auto) Absolute Lymphs (auto) Absolute Monos (auto) Absolute Eos (auto) Absolute Basos (auto) Absolute Nucleated RBC Nucleated RBC % Sodium Potassium Chloride Carbon Dioxide Anion Gap BUN Creatinine Est GFR ( Amer) Est GFR (Non-Af Amer) BUN/Creatinine Ratio Glucose POC Glucose (mg/dL) 183 H Calcium Magnesium Assessment: 1. Sternal wound infection without abscess but likely osteomeyelitis, acute due to Viridans Grp Strep 2. CAD s/p CAB 3. PCN allergy, tolerating cefepime well 4. elevated CRP 5. T2DM Plan: 1. continue ceftriaxone 2 gm daily, for 4 weeks IV abx with weekly cbc, cmp, crp and outpt CT surgical follow up. She will call if fever, rash, diarrhea, worsening infection. Discussed with Elin Hutchinson NP 35 minutes floor time >50% face to face time in counseling regarding alf IV antibiotic use, side effects, and monitoring. All questions answered.
--- NOTE | 2016-12-22 10:52 | DCNOTE ---
Subjective Date of Service: 12/22/16 Interval History: Pt reports she feels much better and is ready to go home. Denies any fever or chills. No chest pain at wound sites but reports some mild tenderness. Feels that the wound is draining less, appears to be clear fluid. No N/V/D or abdominal pain. Reports constipation but states she feels like she could have a BM today. Reports good appetite. Pt feels comfortable with daily dressing changes and home IV abx. Objective Active Medications: Acetaminophen (Tylenol Tab*) 650 mg PO Q4H PRN PRN Reason: FEVER/PAIN Last Admin: 12/21/16 11:09 Dose: 650 mg Aspirin (Aspirin Ec Low Dose*) 81 mg PO DAILY [facility] Last Admin: 12/22/16 09:42 Dose: 81 mg Dextrose (D50w Syringe 50 Ml*) 12.5 gm IV PUSH .FOR FS < 60 - SS PRN PRN Reason: FS < 60 Diphenhydramine HCl (Benadryl Po*) 25 mg PO BEDTIME PRN PRN Reason: INSOMNIA Last Admin: 12/21/16 19:56 Dose: 25 mg Ezetimibe (Zetia Tab*) 10 mg PO DAILY [facility] Last Admin: 12/22/16 09:41 Dose: 10 mg Heparin Sodium (Porcine) (Heparin Vial(*)) 5,000 units SUBCUT Q8HR [facility] Last Admin: 12/22/16 06:09 Dose: 5,000 units Heparin Sodium (Porcine) (Heparin Flush Picc/Ml/Cvc(*)) 1 ml FLUSH 0600,1800 [facility] PRN Reason: Protocol Last Admin: 12/22/16 06:10 Dose: 1 ml Hydrochlorothiazide (Hydrodiuril Tab*) 25 mg PO DAILY [facility] Last Admin: 12/22/16 09:42 Dose: 25 mg Ceftriaxone Sodium 2 gm/ (Sodium Chloride) 100 mls @ 200 mls/hr IVPB Q24H [facility] Last Admin: 12/21/16 17:51 Dose: 200 mls/hr Magnesium Sulfate (Magnesium Sulfate 2 Gm Iv*) 2 gm in 50 mls @ 50 mls/hr IVPB ONCE ONE Stop: 12/22/16 10:55 Last Admin: 12/22/16 10:25 Dose: 50 mls/hr Insulin Glargine (Lantus(*)) 25 units SUBCUT Q12H [facility] Last Admin: 12/22/16 09:44 Dose: 25 units Insulin Human Lispro (Humalog*) 0 units SUBCUT [facility] PRN Reason: Protocol Last Admin: 12/22/16 09:43 Dose: 3 units Insulin Human Lispro (Humalog*) 0 units SUBCUT AC [facility] PRN Reason: Protocol Last Admin: 12/22/16 09:43 Dose: 6 units Losartan Potassium (Cozaar Tab*) 50 mg PO DAILY [facility] Last Admin: 12/22/16 09:42 Dose: 50 mg Melatonin (Melatonin (Nf)) 3 mg PO BEDTIME [facility] Last Admin: 12/21/16 19:56 Dose: Not Given Metoprolol Tartrate (Lopressor Tab*) 50 mg PO BID [facility] Last Admin: 12/22/16 09:42 Dose: 50 mg Ondansetron HCl (Zofran Inj*) 4 mg IV Q6H PRN PRN Reason: NAUSEA Last Admin: 12/20/16 16:45 Dose: 4 mg Polyethylene Glycol/Electrolytes (Miralax*) 17 gm PO 0800,2100 [facility] Last Admin: 12/22/16 09:44 Dose: 17 gm Vital Signs 12/21/16 12/21/16 12/21/16 11:37 16:56 19:56 Temperature 98.5 F Pulse Rate 73 Respiratory 16 18 Rate Blood Pressure 145/67 (mmHg) O2 Sat by Pulse 98 Oximetry 12/21/16 12/21/16 12/21/16 20:00 21:56 23:40 Temperature 98.4 F Pulse Rate 77 Respiratory 18 18 20 Rate Blood Pressure 142/66 (mmHg) O2 Sat by Pulse 98 96 Oximetry 12/22/16 12/22/16 07:33 08:00 Temperature 97.6 F Pulse Rate 79 Respiratory 18 18 Rate Blood Pressure 158/96 (mmHg) O2 Sat by Pulse 98 98 Oximetry Oxygen Devices in Use Now: None Appearance: 56 yo obese female laying in bed resting in NAD. A=O x3 Eyes: No Scleral Icterus, PERRLA Ears/Nose/Mouth/Throat: NL Teeth, Lips, Gums, Mucous Membranes Moist Neck: NL Appearance and Movements; NL JVP Respiratory: Symmetrical Chest Expansion and Respiratory Effort, Clear to Auscultation Cardiovascular: NL Sounds; No Murmurs; No JVD, RRR, No Edema Abdominal: NL Sounds; No Tenderness; No Distention, - - obese Extremities: No Edema Skin: - - sternal wounds to chest wall - surrounding erythema appears improved today. Neurological: Alert and Oriented x 3, NL Sensation, NL Gait, NL Muscle Strength and Tone Lines/Tubes/Other Access: Clean, Dry and Intact PICC Line Nutrition: Taking PO's Result Diagrams: 12/22/16 06:03 12/22/16 06:03 Additional Lab and Data: Lab Results 12/20/16 12/20/16 12/20/16 Range/Units 08:00 08:00 08:00 WBC 6.0 (3.5-10.8) 10^3/ul RBC 4.12 (4.0-5.4) 10^6/ul Hgb 13.0 (12.0-16.0) g/dl Hct 39 (35-47) % MCV 94 (80-97) fL MCH 32 H (27-31) pg MCHC 34 (31-36) g/dl RDW 15 (10.5-15) % Plt Count 302 (150-450) 10^3/ul MPV 8 (7.4-10.4) um3 Neut % (Auto) 53.2 (38-83) % Lymph % (Auto) 30.3 (25-47) % [place] % (Auto) 15.4 H (1-9) % Eos % (Auto) 0.3 (0-6) % Baso % (Auto) 0.8 (0-2) % Absolute Neuts (auto) 3.2 (1.5-7.7) 10^3/ul Absolute Lymphs (auto) 1.8 (1.0-4.8) 10^3/ul Absolute Monos (auto) 0.9 H (0-0.8) 10^3/ul Absolute Eos (auto) 0 (0-0.6) 10^3/ul Absolute Basos (auto) 0 (0-0.2) 10^3/ul Absolute Nucleated RBC 0 10^3/ul Nucleated RBC % 0.1 INR (Anticoag Therapy) 0.88 L (0.89-1.11) APTT 26.5 (26.0-36.3) seconds VBG pH (7.33-7.43) VBG pCO2 (41-51) mmHg VBG pO2 (35-45) mmHg VBG HCO3 (24-28) mmol/L VBG O2 Saturation (70-80) % VBG Base Excess (0-4) Sodium 132 L (133-145) mmol/L Potassium 3.1 L (3.5-5.0) mmol/L Chloride 91 L (101-111) mmol/L Carbon Dioxide 32 (22-32) mmol/L Anion Gap 9 (2-11) mmol/L BUN 27 H (6-24) mg/dL Creatinine 1.09 H (0.51-0.95) mg/dL Est GFR ( Amer) 66.3 (>60) Est GFR (Non-Af Amer) 51.6 (>60) BUN/Creatinine Ratio 24.8 H (8-20) Glucose 341 H (70-100) mg/dL Lactic Acid (0.5-2.0) mmol/L Calcium 10.2 (8.6-10.3) mg/dL Total Bilirubin 0.30 (0.2-1.0) mg/dL AST 12 L (13-39) U/L ALT 18 (7-52) U/L Alkaline Phosphatase 90 (34-104) U/L Total Creatine Kinase 77 (10-223) U/L Troponin I 0.01 (<0.04) ng/mL C-Reactive Protein 50.67 H (< 5.00) mg/L Total Protein 7.1 (6.4-8.9) g/dL Albumin 3.3 (3.2-5.2) g/dL Globulin 3.8 (2-4) g/dL Albumin/Globulin Ratio 0.9 L (1-3) 12/20/16 12/20/16 Range/Units 08:00 08:34 WBC (3.5-10.8) 10^3/ul RBC (4.0-5.4) 10^6/ul Hgb (12.0-16.0) g/dl Hct (35-47) % MCV (80-97) fL MCH (27-31) pg MCHC (31-36) g/dl RDW (10.5-15) % Plt Count (150-450) 10^3/ul MPV (7.4-10.4) um3 Neut % (Auto) (38-83) % Lymph % (Auto) (25-47) % [place] % (Auto) (1-9) % Eos % (Auto) (0-6) % Baso % (Auto) (0-2) % Absolute Neuts (auto) (1.5-7.7) 10^3/ul Absolute Lymphs (auto) (1.0-4.8) 10^3/ul Absolute Monos (auto) (0-0.8) 10^3/ul Absolute Eos (auto) (0-0.6) 10^3/ul Absolute Basos (auto) (0-0.2) 10^3/ul Absolute Nucleated RBC 10^3/ul Nucleated RBC % INR (Anticoag Therapy) (0.89-1.11) APTT (26.0-36.3) seconds VBG pH 7.45 H (7.33-7.43) VBG pCO2 54 H (41-51) mmHg VBG pO2 25 L (35-45) mmHg VBG HCO3 32.3 H (24-28) mmol/L VBG O2 Saturation 42.1 L (70-80) % VBG Base Excess 11.4 H (0-4) Sodium (133-145) mmol/L Potassium (3.5-5.0) mmol/L Chloride (101-111) mmol/L Carbon Dioxide (22-32) mmol/L Anion Gap (2-11) mmol/L BUN (6-24) mg/dL Creatinine (0.51-0.95) mg/dL Est GFR ( Amer) (>60) Est GFR (Non-Af Amer) (>60) BUN/Creatinine Ratio (8-20) Glucose (70-100) mg/dL Lactic Acid 1.4 (0.5-2.0) mmol/L Calcium (8.6-10.3) mg/dL Total Bilirubin (0.2-1.0) mg/dL AST (13-39) U/L ALT (7-52) U/L Alkaline Phosphatase (34-104) U/L Total Creatine Kinase (10-223) U/L Troponin I (<0.04) ng/mL C-Reactive Protein (< 5.00) mg/L Total Protein (6.4-8.9) g/dL Albumin (3.2-5.2) g/dL Globulin (2-4) g/dL Albumin/Globulin Ratio (1-3) Microbiology and Other Data: Microbiology 12/20/16 09:50 Urine Culture - Final Urine Assess/Plan/Problems-Billing Assessment: 56 yo female with a PMH of Insulin dependent diabetes, s/p CABG 2016 who developed a post-op sternal surgical incision infection recently started on Cipro who presented to the ED 12/20 with increasing malaise, hyperglycemia and increasing wound drainage from sternum. - Patient Problems (1) Postoperative infection of wound of sternum Comment: - No sepsis noted, no leukocytosis, afebrile, CRP 56 - ID following - switch to ceftraixone to cover viridians group strep.. wound cx growing strep. blood cx no growth day 2. Discussed case with ID today - ok to DC to home with plan for 4 week IV abx. ID will continue to follow as an outpt. - MRI chest - left para midline anterior open subcutaneous wound w/o gross evidence for contiguous direct extension to the sternum. suspicious for cellulitis w/o loculated soft tissue abscess. - Wound Care Consult: "Ms. Ceron is a [facility] of [facility]. 2 sternal wounds: Proximal 1.3 cm x 1.3 cm x 1.9 cm Wound undermines from 1:00 - 7:00 with a maximum depth of 3.7 cm at 2:00 and has a tunnel at 1:00 measuring 5.3 cm. Distal measures 2.8 cm x 1 cm x 1.6 cm with a tunnel at 12: 00 measuring 3.2 cm. Recommend irrigation with saline daily and packing with 1/ 2 plain packing tape, cover with 4x4s/ABDs and secure with paper tape or hypafix tape". (2) Insulin dependent diabetes mellitus Comment: - restart home medications on discharge. (3) HTN (hypertension) Comment: - Continue home dose metoprolol and HCTZ (4) CKD (chronic kidney disease) Comment: - appears to be at baseline (5) CAD (coronary artery disease) Comment: - asymptomatic. Contonue home meds metoprolol, ASA, Zetia (6) Electrolyte abnormality Comment: - replace magnesium (7) DVT prophylaxis Comment: HSQ (8) Full code status Status and Disposition: inpatient with post-surgical wound infection requiring IV antibiotics - picc placed, plan for home IV abx. will continue to follow with ID and PCP closely, as well as wound clinic
--- NOTE | 2016-12-23 09:22 | DS ---
DISCHARGE SUMMARY: DATE OF ADMISSION: 12/20/16 DATE OF DISCHARGE: 12/22/16 PROVIDER: Desi Thornton NP ATTENDING PHYSICIAN: Markus Vegas MD *(report dictated by Desi Thornton NP) PRIMARY CARE PROVIDER: Devaughn Lanier MD ID CONSULTING PHYSICIAN: Yovanny Moncada MD CARDIOLOGISTS: 1. Gonzalo Oreilly DO 2. Dr. West in [place], [place]. PRIMARY DIAGNOSES: 1. Sternal wound infection without abscess likely osteomyelitis with would cultures growing viridans group strep. 2. Coronary artery disease, status post coronary artery bypass graft. 3. Insulin dependent type 2 diabetes. 4. Hypertension. SECONDARY DIAGNOSES: 1. Chronic kidney disease. 2. Hyperlipidemia. 3. History of toxic shock syndrome. 4. Arthritis. 5. Fibromyalgia. HISTORY OF PRESENT ILLNESS AND HOSPITAL COURSE: Please see history and physical by Dhara Giles NP, for full admission details, but in summary, this is a 56-year- old female who recently underwent a coronary artery bypass graft for LAD disease who presented to the ER on 12/20/16 with concern for increased drainage from her surgical chest wounds as well as reported nausea and vomiting. Following surgery, Dr. Oreilly had apparently had concern for appearance of the wounds and sent the patient to Dr. West. At that time, the wound had not yet been weeping. The patient reported a few weeks ago, she noted that her wound started having clear drainage. The patient was instructed to keep cleaning the wound with soap and water. She reported as time progressed that the drainage became more profuse and thicker. She was started on ciprofloxacin and she was referred to the Wound Clinic. She reports apparently she was unable to make it to [place] for a followup with Dr. West. Her first initial visit at the [facility] here at [facility] was in which at that time blood cultures were drawn, and she was started on antibiotics with ciprofloxacin and her wound was debrided and packed. The patient was instructed to take the packing out on Tuesday; however, she states that her wound was draining copious drainage and the packing actually fell off Tuesday. She kept the wound covered; however, on the day she presented to the emergency department, she reports she started developing nausea and vomiting and per instructions by the [facility], she came to the emergency department for further evaluation. On admission, the patient had no leukocytosis or noted fevers. Per patient, she denied fevers and chills at home as well. She did present with a sodium 132 , potassium 3.1, and CRP of 50. She was admitted to the hospitalist service, started on cefepime initially. It was noted that her blood cultures from were negative for growth as well on admission, she had 2 sets drawn, which were negative for growth. Her wound culture did grow Streptococcus anginosus. She was seen in consultation by Infectious Disease specialist, Dr. Moncada, who switched the patient to ceftriaxone. The plan is for the patient to go home on ceftriaxone 2 g IV q.24 hours for 4 weeks with a PICC line and this has been set up for the patient to do this at home. The patient will follow closely with her PCP and Dr. Moncada as an outpatient. As well, the patient will follow closely with the Wound Clinic and she has an appointment in 2 days from today's discharge. The patient has been instructed and feels comfortable doing her daily dressing changes. The patient has done well throughout her hospitalization. She feels that she is back to her baseline and would like to go home. In regards to the patient's other chronic comorbidities, she has been stable. She has had some noted higher blood sugars in the 180 range mostly likely in the setting of an infection and her hemoglobin A1c was noted be 10.9, last ____ _ file from 05/25/16 was 10. Her chronic kidney disease appears to be at baseline. Her coronary artery disease appears to be stable and she has been without complaints. DISCHARGE MEDICATIONS: 1. Lispro 5 units subcu t.i.d. a.c. 2. Victoza 0.6 mg subcu daily. 3. Insulin glargine 25 units subcu b.i.d. 4. Metformin 850 mg p.o. t.i.d. 5. Cozaar 50 mg p.o. daily. 6. Hydrochlorothiazide 25 mg p.o. daily. 7. Zetia 10 mg p.o. daily. 8. Metoprolol tartrate 50 mg p.o. b.i.d. 9. Aspirin EC low dose 81 mg p.o. daily. 10. Ceftriaxone 2 g IV q.24 hours for 4 weeks. DISCHARGE PLAN: 1. The patient is to be discharged to home with a PICC line and plan for IV antibiotics for 4 weeks with weekly labs sent to Dr. Moncada. 2. Follow up with Dr. Moncada. His office will call the patient for a followup appointment. 3. The patient has a followup with [facility] on 12/24/16 at 8 :30 a.m. 4. The patient was instructed to call Dr. Lanier to follow up with him in the next 3 to 5 days. 5. The patient was instructed for daily dressing changes per Wound Clinic. Recommended to irrigate with sterile saline daily and pack with 0.5 inch plain packing tape and cover with 4x4/ABDs and secure with paper tape. She was instructed to monitor for acute changes and return to the emergency department with any worsening or concerning symptoms. 6. Stable for discharge. TIME SPENT: Approximately 60 minutes was spent on this discharge. DESI THORNTON NP CC: Dr. Moncada; Dr. Oreilly; Dr. West* [id number]/[facility] #: [id number] [place]
== END 2016-12-22 15:50 | disposition home or self-care (01) | DRG 420 ==
LOC: ED 07:14 → MED 09:28
PROVIDERS: ADMIT Internal Medicine; ATTEND Hospitalist
PROC: 02HV33Z Insertion of Infusion Device into Superior Vena Cava, Percutaneous Approach (ICD-10-PCS; principal; 2016-12-21)
DX: E11.69 Type 2 diabetes mellitus with other specified complication (principal); T81.32XA Disruption of internal operation (surgical) wound, not elsewhere classified, initial encounter; M86.8X8 Other osteomyelitis, other site; I25.810 Atherosclerosis of coronary artery bypass graft(s) without angina pectoris; I13.10 Hypertensive heart and chronic kidney disease without heart failure, with stage 1 through stage 4 chronic kidney disease, or unspecified chronic kidney disease; B95.4 Other streptococcus as the cause of diseases classified elsewhere; Z79.4 Long term (current) use of insulin; N18.9 Chronic kidney disease, unspecified; E78.5 Hyperlipidemia, unspecified; M19.90 Unspecified osteoarthritis, unspecified site; M79.7 Fibromyalgia; X58.XXXA Exposure to other specified factors, initial encounter; Y92.9 Unspecified place or not applicable; Z79.84 Long term (current) use of oral hypoglycemic drugs; Z95.1 Presence of aortocoronary bypass graft; Z79.82 Long term (current) use of aspirin; Z79.899 Other long term (current) drug therapy; Z88.0 Allergy status to penicillin; Z88.8 Allergy status to other drugs, medicaments and biological substances; Z82.3 Family history of stroke; Z80.9 Family history of malignant neoplasm, unspecified
CPT/HCPCS: 36415; 71260; 71550; 80048; 80053; 81003; 81015; 82550; 82803; 83036; 83605; 83735; 84484; 85025; 85610; 85730; 86140; 87040; 87070; 87077; 87086; 87186; 87205; 93005; 94760; A9270-GY; C1751; J0690; J0692; J0696; J1644; J2405; J3475; Q9967

== ENCOUNTER 2018-01-31 07:07 | Day surgery (SDC) | payer OTHER ==
--- NOTE | 2018-01-25 20:14 | HP ---
PREOPERATIVE HISTORY AND PHYSICAL: DATE OF SURGERY/ADMISSION: 01/31/18 [facility] ATTENDING SURGEON: Lona Casanova MD * (DICTATED BY CARY ROMANO) PROCEDURE: Right wrist carpal tunnel release. CHIEF COMPLAINT: Bilateral hand numbness and tingling. HISTORY OF PRESENT ILLNESS: This is a 57-year-old female who complains of numbness and tingling in her bilateral hands, much worse on the right than on the left. 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 She has had these symptoms present for approximately 2 months. She reports history of carpal tunnel syndrome many years ago that resolved, however, it has recently come back. She had a nerve conduction study performed recently by Dr. Sandoval and was told that she has moderate carpal tunnel syndrome bilaterally. Her biggest complaint is burning pain in the middle finger on the right hand, but occasionally also involving the ring finger , thumb and index fingers. The patient recently obtained a brace which is helpful to a certain extent, but does not fully alleviate her symptoms. The patient is diabetic and says that her diabetes is variably controlled. Recent A1c was about 9, but she says that her blood sugar when she checks it is almost always below 200. Medical history also includes a cardiac bypass in October 2016. Her lamps tester and inspector is Dr. Oreilly and we will obtain a letter of clearance from him prior to proceeding with surgery. The patient last saw Dr. Oreilly in October 2017 and there were no changes to her treatment regimen and no new cardiac concerns. PAST MEDICAL HISTORY: 1. Diabetes mellitus type 2. 2. Hypertension. 3. Coronary artery disease. 4. Hyperlipidemia. PAST SURGICAL HISTORY: 1. Cardiac bypass, October 2016. 2. Tubal ligation. 3. L4-L5 microdiskectomy. CURRENT MEDICATIONS: 1. Aspirin 81 mg daily. 2. Burdock root 2 tabs daily. 3. Gabapentin 100 mg 3 times a day. 4. Humalog KwikPen 100 units/mL, 5 units before meals. 5. Hydrochlorothiazide 25 mg daily. 6. Lantus SoloSTAR 100 units/mL, 25 units q.a.m., q.p.m. 7. Losartan potassium 50 mg daily. 8. Magnesium daily. 9. Metformin HCl 850 mg 3 times a day. 10. Metoprolol tartrate 50 mg twice a day. 11. Nitrostat 0.4 mg up to 3 doses p.r.n. 12. [place] leaf extract 500 mg 2 tabs daily. 13. Repatha 140 mg/mL inject once every 2 weeks. 14. Turmeric extra strength 3 tabs daily. 15. Victoza 18 mg/3 mL 0.6 mg daily. 16. Vitamin B complex 1 tab daily. ALLERGIES: PENICILLIN causes a rash and STATIN cause body aches. Also allergic to LISINOPRIL and LIPITOR, reaction unknown. FAMILY MEDICAL HISTORY: Heart disease and cancer. SOCIAL HISTORY: The patient is employed part-time in care of an Alzheimer's patient. She is a former smoker, she quit 10 years ago. Prior to that she smoked half a pack to a pack of cigarettes per day since age 10. She is a current marijuana smoker and denies alcohol use. REVIEW OF SYSTEMS: General: Negative for fevers, chills, or night sweats. Unexplained weight loss and gain. No known anesthesia problems. Positive for weakness and fatigue. HEENT: Negative for headaches, lightheadedness, syncopal episodes, visual changes. Integumentary: Negative for abrasions, lesions, open wounds. Cardiothoracic: Negative for hypertension, chest pain, palpitations, edema. Respiratory: Negative for shortness of breath with exertion, chronic cough, wheezing. GI: Negative for nausea, vomiting, diarrhea , constipation, GERD. : Negative for nocturia, urinary frequency, urgency, history of UTIs, kidney problems. Musculoskeletal: Positive for current complaint. Positive for chronic back pain. Neurological: Negative for history of seizure, stroke, poor balance. Endocrine: Positive for diabetes. Negative for thyroid issues. Hematologic: Negative of easy bruising, anemia, bleeding disorders, history of DVT. Infectious Disease: Negative for history of MRSA, hepatitis C, HIV. PHYSICAL EXAMINATION GENERAL: Well-developed, well-nourished 57-year-old female in no acute distress. VITAL SIGNS: Height 5 feet 5 inches, weight 235 pounds. Pulse rate 64, blood pressure 120/70. HEENT: Normocephalic, atraumatic. Pupils are equal, round, and reactive to light and accommodation. Extraocular movements are intact. Throat is clear. NECK: Supple. No palpable lymph nodes. PULMONARY: Lungs are clear to auscultation bilaterally. No wheezes, rales, or rhonchi. CARDIOVASCULAR: Regular rate and rhythm. S1, S2. No murmurs, rubs, or gallops. No edema. ABDOMEN: Positive bowel sounds. Soft, nontender. MUSCULOSKELETAL: On inspection of her bilateral upper extremities, there is no thenar wasting. She has weakness with thumb abduction on the right more than the left. She has full motion in her fingers. She has positive Tinel sign bilaterally. She has good strength with abduction of the fingers and a negative Tinel sign of the ulnar nerve. NEUROLOGICAL: Alert and oriented x3. Cranial nerves II through XII are intact. Sensation is intact to light touch. DIAGNOSTIC STUDIES: EMG nerve conduction study shows moderate carpal tunnel syndrome. IMPRESSION: Bilateral carpal tunnel syndrome, right greater than left. PLAN: The patient is scheduled to undergo a right wrist carpal tunnel release with Dr. Casanova on 01/31/18. She will return to the office 10 days postop for followup and suture removal. A prescription for Ultracet was e-scribed to the patient's pharmacy for postoperative pain management. We will get a letter of clearance from her lamps tester and inspector, Dr. Oreilly, prior to proceeding with surgery. CARY ROMANO [id number]/[facility] #: [id number] MTDD
[~2018-01-31 07:07] MED LIST: Buffered Lidocaine 0.9% SYRIN* 5 ML/SYR SYRINGE INTRADERM ONE; Famotidine IV* 10 MG/ML 2 ML (20 mg) IV ONE
[2018-01-31] MEDS ORDERED: Famotidine IV* 10 MG/ML 2 ML (20 mg) ONE (07:44)
[2018-01-31] MEDS ORDERED: fentaNYL* 50 MCG/ML 2 ML VIAL (100 MCG VIAL) ONE (09:06)
[2018-01-31] MEDS ORDERED: Midazolam* 1 MG/ML 5 ML VIAL (5 MG) ONE (09:07)
[2018-01-31] MEDS ORDERED: Lidocaine 2% PF * 5 ML VIAL ONE (09:16)
[2018-01-31] MEDS ORDERED: Ketorolac INJ* 30 MG/ML 1 ML VIAL ONE (09:16)
[2018-01-31] MEDS ORDERED: Propofol* 10 MG/ML 20 ML BTL IV PUSH ONE (09:16)
[2018-01-31] MEDS ORDERED: Ondansetron INJ* 2 MG/ML VIAL ONE (09:16)
[2018-01-31] MEDS ORDERED: Lidocaine 1% INJ* 10 MG/ML 30 ML SDV ONE (09:35)
[2018-01-31 10:21] VITALS: BP 120/62
[2018-01-31] MEDS ORDERED: Acetaminophen TAB* 325 MG PO PRN (10:21)
[2018-01-31] MEDS ORDERED: Naloxone* 0.4 MG/ML 1 ML VIAL IV PRN (10:21)
--- NOTE | 2018-02-01 02:43 | OP ---
CC: Dr. Casanova OPERATIVE REPORT: DATE OF OPERATION: 01/31/18 DATE OF : 56 SURGEON: Lona Casanova MD SITE ACQUISITION MANAGER: CARY Gonzales ANESTHESIA: Local MAC. PRE-OP DIAGNOSIS: Right carpal tunnel syndrome. POST-OP DIAGNOSIS: Right carpal tunnel syndrome. OPERATIVE PROCEDURE: Right carpal tunnel release. ESTIMATED BLOOD LOSS: Zero. TOURNIQUET TIME: Approximately 5 minutes. INDICATION FOR PROCEDURE: Dalia is a 57-year-old woman with numbness and tingling in the median n erve distribution of the right hand. She presents for right carpal tunnel release. DESCRIPTION OF PROCEDURE: The patient was brought to the operating room, was given a sedation anesth etic and a local infiltration of 10 cc of 1% plain lidocaine in the palm of her right hand. The skin of her right hand and forearm was prepped and draped in the usual sterile fashion. The hand and fore arm were exsanguinated and the tourniquet elevated to 250 mmHg. A longitudinal incision was made in the palm in line with the ring finger. We dissected sharply through the subcutaneous tissue down to the transverse carpal ligament. The ligament was divided sharply with a knife and then more proximal ly with the scissors. The nerve was dissected free from the surrounding tissue and three was an area of moderate compression at the mid portion of the ligament. The wound was irrigated and the skin edge s were reapproximated with 4-0 nylon suture. The wound was dressed with Xeroform, 4x4, Webril and an Chaitanya wrap. The patient tolerated the procedure well and was brought to the recovery room in good cond ition. [id number]/[facility] #: [id number]
== END 2018-01-31 10:43 | disposition home or self-care (01) ==
LOC: OREAST 07:07
PROVIDERS: ATTEND Orthopaedic Surgery
DX: G56.01 Carpal tunnel syndrome, right upper limb (principal); E11.8 Type 2 diabetes mellitus with unspecified complications; Z79.4 Long term (current) use of insulin; Z79.84 Long term (current) use of oral hypoglycemic drugs; I10 Essential (primary) hypertension; I25.10 Atherosclerotic heart disease of native coronary artery without angina pectoris; E78.5 Hyperlipidemia, unspecified; Z95.1 Presence of aortocoronary bypass graft; Z87.891 Personal history of nicotine dependence; M19.90 Unspecified osteoarthritis, unspecified site; M79.7 Fibromyalgia
CPT/HCPCS: J1885; J2250; J2405; J2704; J3010

== ENCOUNTER 2018-05-16 00:06 | Emergency (ER) | payer OTHER ==
--- NOTE | 2018-05-16 00:58 | ED ---
Back Pain - HPI Summary HPI Summary: A 57 y/o female presents to ED c/o intermittent right lower back pain reaching 10/10 in severity. As per triage, "Pt c/o right lower back pain radiating to her right hip and into her right groin since early yesterday morning. Pt denies injury". According to the patient, she has pain mostly in the back, but it radiates to her front side. The pain started yesterday afternoon and the patient described the pain as a "pinch nerve". She noted that she can barely move her legs due to the pain. She further noted that it feels more sore than anything else and hurts with movement. Denies any hematuria. - History of Current Complaint Chief Complaint: EDBackInjuryPain Stated Complaint: BACK PAIN Time Seen by Provider: 05/16/18 00:48 Hx Obtained From: Patient Onset/Duration: Sudden Onset, Lasting Days, Still Present Onset/Duration: Started Days Ago, Still Present Timing: Intermittent Back Pain Location: Is Discrete @ - Right Lower back radiating to front Severity Initially: Severe Severity Currently: Severe Pain Intensity: 10 Pain Scale Used: 0-10 Numeric Character: Aching Aggravating Symptom(s): Movement Alleviating Symptom(s): Nothing Associated Signs And Symptoms: Positive: Abdominal Pain - Allergies/Home Medications Allergies/Adverse Reactions: Allergies Allergy/AdvReac Type Severity Reaction Status Date / Time atorvastatin Allergy Severe Muscle Ache Verified 05/16/18 00:11 Penicillins Allergy Severe Rash And Verified 05/16/18 00:11 Itching pravastatin Allergy Severe Muscle Ache Verified 05/16/18 00:11 lisinopril AdvReac Intermediate Coughing Verified 05/16/18 00:11 Seasonal/Environmental Allergy Intermediate Congestion Uncoded 05/16/18 00:11 Allergies PMH/Surg Hx/FS Hx/Imm Hx Endocrine/Hematology History: Reports: Hx Diabetes - on medications Denies: Hx Thyroid Disease Cardiovascular History: Reports: Hx Coronary Artery Disease - 10/29/16- CABG triple bypass, wound infection, Hx Hypertension, Hx Peripheral Vascular Disease - Dr Lanier wants to check this, per pt, Other Cardiovascular Problems/ Disorders - Hypercholesterolemia Denies: Hx Pacemaker/ICD, Hx Rheumatic Fever, Hx Valvular Heart Disease Respiratory History: Denies: Hx Asthma, Other Respiratory Problems/Disorders GI History: Denies: Hx Cirrhosis, Hx Ulcer, Other GI Disorders History: Reports: Hx Renal Disease - R/T DIABETES Denies: Other Problems/Disorders Musculoskeletal History: Reports: Hx Arthritis - HANDS, KNEES, SPINE AND HIPS, Hx Back Problems - S/P disc surgery, Hx Fibromyalgia, Hx Tendonitis - Carpal tunnel syndrome right wrist, Other Musculoskeletal History - HYPERMOBIL JOINTS, BONE SPURS, TORN MENISCUS IN PAST per HX Sensory History: Reports: Hx Cataracts - BEGINNING CATARACTS-BILATERAL, Hx Contacts or Glasses - GLASSES Denies: Hx Glaucoma, Hx Hearing Aid Opthamlomology History: Reports: Hx Cataracts - BEGINNING CATARACTS-BILATERAL, Hx Contacts or Glasses - GLASSES Denies: Hx Glaucoma Neurological History: Reports: Hx Nerve Disease - Fibromyalgia, diabetic neuropathy Denies: Other Neuro Impairments/Disorders Psychiatric History: Reports: Hx Depression Denies: Hx Panic Disorder - Cancer History Hx Chemotherapy: No Hx Radiation Therapy: No - Surgical History Surgery Procedure, Year, and Place: TUBAL LIGATION 1988. DISCECTOMY L-12/22 1988. TRIPLE BYPASS Oct WITH STERNAL WIRES Hx Anesthesia Reactions: No Infectious Disease History: No Infectious Disease History: Denies: Traveled Outside the [place] in Last 30 Days - Family History Known Family History: Positive: Other - Negative: breast cancer, malignant hyperthermia, anesthesia reaction - Social History Alcohol Use: None Hx Substance Use: Yes Substance Use Type: Reports: None Substance Use Comment - Amount & Last Used: daily Hx Tobacco Use: Yes Smoking Status (MU): Former Smoker Type: Cigarettes Amount Used/How Often: 1/2 PPD 40 YEARS Have You Smoked in the Last Year: No Review of Systems Negative: Fever Positive: Abdominal Pain - Due to back pain Positive: Other - POSITIVE: Back pain All Other Systems Reviewed And Are Negative: Yes Physical Exam - Summary Physical Exam Summary: VITAL SIGNS: Reviewed. GENERAL: Patient is a morbidly obese female who is lying comfortable in the stretcher. Patient is not in any acute respiratory distress. HEAD AND FACE: No signs of trauma. No ecchymosis, hematomas or skull depressions. No sinus tenderness. EYES: PERRLA, EOMI x 2, No injected conjunctiva, no nystagmus. EARS: Hearing grossly intact. Ear canals and tympanic membranes are within normal limits. MOUTH: Oropharynx within normal limits. NECK: Supple, trachea is midline, no adenopathy, no JVD, no carotid bruit, no c- spine tenderness, neck with full ROM. CHEST: Symmetric, no tenderness at palpation LUNGS: Clear to auscultation bilaterally. No wheezing or crackles. CVS: Regular rate and rhythm, S1 and S2 present, no murmurs or gallops appreciated. ABDOMEN: Soft, flank tenderness. No signs of distention. No rebound no guarding , and no masses palpated. Bowel sounds are normal. EXTREMITIES: FROM in all major joints, no edema, no cyanosis or clubbing. BACK: Right CVA tenderness NEURO: Alert and oriented x 3. No acute neurological deficits. Speech is normal and follows commands. SKIN: Dry and warm Triage Information Reviewed: Yes Vital Signs On Initial Exam: Initial Vitals Temp Pulse Resp BP Pulse Ox 97.2 F 76 20 141/77 99 05/16/18 00:08 05/16/18 00:08 05/16/18 00:08 05/16/18 00:08 05/16/18 00:08 Vital Signs Reviewed: Yes Diagnostics - Vital Signs Vital Signs Temp Pulse Resp BP Pulse Ox 05/16/18 00:08 97.2 F 76 20 141/77 99 - Laboratory Result Diagrams: 05/16/18 01:19 05/16/18 01:19 Lab Statement: Any lab studies that have been ordered have been reviewed, and results considered in the medical decision making process. - CT CT A/P CT Interpretation Completed By: Radiologist - No acute findings. Multiple bilateral renal stones measuring up to 3 mm. No evidence of hydroureteronephrosis. ED physician reviewed this radiology report. Re-Evaluation - Re-Evaluation First Eval Re-Evaluation Time: 04:04 Change: Improved Comment: Patient feels much better. Back Pain Course/Dx - Course Course Of Treatment: A 57 y/o female presents to ED c/o intermittent right lower back pain reaching 10/[address] A/P revealed no acute findings. Multiple bilateral renal stones measuring up to 3 mm. No evidence of hydroureteronephrosis. Blood work and UA was also done. In the ED course, the patient recieved Toradol, Reglan, Morphine and IV fluids. During reevaluation, the patient revealed she feels much better. Patient will be discharged with a diagnosis of back pain. Patient will be sent home with Percocet. Patient is to follow up with PCP in 1-2 days. Patient is agreeable with this plan. - Diagnoses Provider Diagnoses: Back pain Discharge - Sign-Out/Discharge Documenting (check all that apply): Patient Departure - DISCHARGE - Discharge Plan Condition: Stable Disposition: HOME Prescriptions: oxyCODONE/Acetamin 5/325 MG* [Percocet 5/325 TAB*] 1 tab PO Q6H PRN #14 tab MDD 4 PRN Reason: Pain Patient Education Materials: Back Pain (ED) Referrals: Devaughn Lanier MD [Primary Care Provider] - 2 Days Additional Instructions: FOLLOW UP WITH PRIMARY CARE IN 1-2 DAYS. TAKE MEDICATION PRESCRIBED. RETURN TO ED FOR ANY NEW OR WORSENING SYMPTOMS. - Attestation Statements Document Initiated by Scribe: Yes Documenting Scribe: Herson Mcgee Provider For Whom Ilene is Documenting (Include Credential): Isidro Odom Attestation: Herson Aquino, scribed for Mesfin Aden on 05/16/18 at 0409.
[2018-05-16] MEDS ORDERED: Ketorolac INJ* 30 MG/ML 1 ML VIAL IV PUSH ONE (01:00)
[2018-05-16] MEDS ORDERED: NS 0.9% 1000 ML* 1,000 ML IV ONE (01:00)
[2018-05-16] MEDS ORDERED: Morphine INJ* 2 MG/ML 1 ML SYRINGE (TWO MG - NEW SYRINGE VERSION) IV ONE (01:01)
[2018-05-16] MEDS ORDERED: Metoclopramide IV* 5 MG/ML 2 ML VIAL IV SLOW PU ONE (01:01)
[2018-05-16 01:31] LABS: ABS Basophils 0.1 10^3/ul (0-0.2); ABS Eosinophils 0.1 10^3/ul (0-0.6); ABS Lymphocytes 1.6 10^3/ul (1.0-4.8); ABS Monocytes 0.9 10^3/ul (0-0.8); ABS Nucleated RBC 0 10^3/ul; Eosinophil % 0.5 % (0-6); Hematocrit 39 % (35-47); Lymphocyte % 11.6 % (25-47); Mean Corpuscular HGB Conc 34 g/dl (31-36); Mean Corpuscular Hemoglobin 31 pg (27-31); Mean Corpuscular Volume 93 fL (80-97); Nucleated Red Blood Cells % 0; Platelet Count 309 10^3/ul (150-450); Red Blood Count 4.17 10^6/ul (4.00-5.40); Red Cell Distribution Width 14 % (10.5-15); White Blood Count 13.7 10^3/ul (3.5-10.8)
[2018-05-16 01:46] LABS: EGFR Non-African American 40.1 (>60)
[2018-05-16 01:54] LABS: Urine Appearance Cloudy; Urine Blood 2+ (Negative); Urine Color Yellow; Urine Ketones Negative (Negative); Urine Protein Negative (Negative); Urine Red Blood Cell Trace(0-2/hpf) (Absent); Urine Specific Gravity 1.009 (1.010-1.030); Urine Urobilinogen Negative (Negative); Urine White Blood Cell Trace(0-5/hpf) (Absent)
--- NOTE | 2018-05-16 03:42 | RAD ---
EXAM: CT Abdomen and Pelvis Without Intravenous Contrast CLINICAL HISTORY: 57 years old, female; Pain; Abdominal pain; Flank; Right lower quadrant (rlq); Prior surgery; Surgery date: 6+ months; Surgery type: Back surgery; Additional info: Flank pain/back pain TECHNIQUE: Axial computed tomography images of the abdomen and pelvis without intravenous contrast. All CT scans at this facility use at least one of these dose optimization techniques: automated exposure control; mA and/or kV adjustment per patient size (includes targeted exams where dose is matched to clinical indication); or iterative reconstruction. Coronal and sagittal reformatted images were created and reviewed. COMPARISON: LIVER US LIVER 09/22/2016 7:58 AM FINDINGS: Lung bases: Unremarkable. No mass. No consolidation. ABDOMEN: Liver: Diffuse fat infiltration of liver. Gallbladder and bile ducts: Unremarkable. No calcified stones. No ductal dilation. Pancreas: Unremarkable. No ductal dilation. Spleen: Unremarkable. No splenomegaly. Adrenals: Unremarkable. No mass. Kidneys and ureters: Multiple bilateral renal stones measuring up to 3 mm. No evidence of hydroureteronephrosis. Stomach and bowel: Unremarkable. No obstruction. No mucosal thickening. PELVIS: Appendix: Normal appendix. Bladder: Unremarkable. No stones. Reproductive: Unremarkable as visualized. ABDOMEN and PELVIS: Intraperitoneal space: Unremarkable. No free air. No significant fluid collection. Bones/joints: Diffuse demineralization of the bones with degenerative changes. No acute fracture. No dislocation. Soft tissues: Small fat containing bilateral inguinal hernias. Calcification in the right inguinal region may represent surgical clip. Small fat containing umbilical hernia. Vasculature: Atherosclerosis of aorta and its branches. No abdominal aortic aneurysm. Lymph nodes: Unremarkable. No enlarged lymph nodes. IMPRESSION: No acute findings. Multiple bilateral renal stones measuring up to 3 mm. No evidence of hydroureteronephrosis.
[2018-05-16 04:26] VITALS: BP 117/74
== END 2018-05-16 04:24 | disposition home or self-care (01) ==
LOC: ED 00:06
DX: M54.5 Low back pain (principal); R10.9 Unspecified abdominal pain; E11.9 Type 2 diabetes mellitus without complications; I25.10 Atherosclerotic heart disease of native coronary artery without angina pectoris; Z95.5 Presence of coronary angioplasty implant and graft; Z87.891 Personal history of nicotine dependence
CPT/HCPCS: 36415; 74176; 80053; 81003; 81015; 82150; 83690; 83735; 85025; 87086; 96374; 96375; 99283; J1885; J2270; J2765

== ENCOUNTER 2018-08-16 08:27 | Day surgery (SDC) | payer OTHER ==
[~2018-08-16 08:27] MED LIST changes: +Acetaminophen TAB* 325 MG PO PRN; -Famotidine IV* 10 MG/ML 2 ML (20 mg) IV ONE
[2018-08-16] MEDS ORDERED: Neomycin/Polymy/Dex OPTH.SUSP* MAXITROL 0.1% 5 ML ONE (10:36)
[2018-08-16] MEDS ORDERED: Proparacaine 0.5% OPHTH.SOL* 15 ML BTL ONE (10:36)
[2018-08-16] MEDS ORDERED: Lidocaine 2% EPI 1:200000 MPF*10-20 ML VIAL ONE (10:36)
[2018-08-16] MEDS ORDERED: Phenylephrine 2.5% OPTH.SOL* 2 ML BTL ONE (10:36)
[2018-08-16] MEDS ORDERED: fentaNYL* 50 MCG/ML 2 ML VIAL (100 MCG VIAL) ONE (10:36)
[2018-08-16] MEDS ORDERED: Povidone Iodine 5% OPTH* 30 ML BTL ONE (10:36)
[2018-08-16] MEDS ORDERED: Lidocaine 1%* 5 ML VIAL ONE (10:36)
[2018-08-16] MEDS ORDERED: Ketorolac 0.5% OPHTH (NF) 0.5 % 5 ML BTL ONE (10:36)
[2018-08-16] MEDS ORDERED: Cyclopentolate 1% OPTH.SOL* 2 ML BTL ONE (10:36)
[2018-08-16] MEDS ORDERED: acetaZOLAMIDE TAB* 250 MG ONE (10:36)
[2018-08-16 11:11] VITALS: BP 162/80
--- NOTE | 2018-08-16 16:03 | OP ---
DATE OF OPERATION: 08/16/2018 - [facility] DATE OF : 1960. SURGEON: Deniz King M.D. PREOPERATIVE DIAGNOSIS: Cataract left eye. POSTOPERATIVE DIAGNOSIS: Cataract left eye. OPERATIVE PROCEDURE: Extracapsular cataract extraction with intraocular lens implant left eye. DESCRIPTION OF PROCEDURE: The patient was brought to the operating room after being given 1/2% Alcaine with epinephrine drops in the preoperative area. The eye was prepped and draped in the usual sterile fashion. Sterile drape and eyelid speculum were placed. Again, topical 1/2% Alcaine with epinephrine was given. A paracentesis incision was made at the 3 o'clock position with the No.75 blade. Clear cornea incision 2.2 x 2.2-mm was created at the 6 o'clock position starting at the anterior limbus using the 2.2-mm keratome. The anterior chamber was irrigated with 0.4 mL of 1% non-preservative intracameral lidocaine and filled with DisCoVisc. A capsulorrhexis was completed using the cystotome and the Utrata forceps. Hydrodissection was performed with balanced salt solution. The lens nucleus was removed with the Phacoemulsification handpiece without incident. Cortex was removed with the irrigation-aspiration handpiece. The capsular bag was re-inflated using DisCoVisc and an [id number] implant was inserted with the shooter. The irrigation-aspiration handpiece was used to remove all residual DisCoVisc. The eye was refilled with balanced salt solution and the wound checked and found to be watertight. Topical Maxitrol drops were given. [id number]/[facility] #: [id number] [facility]
== END 2018-08-16 11:15 | disposition home or self-care (01) ==
LOC: OREAST 08:27
PROVIDERS: ATTEND Specialist
DX: H25.812 Combined forms of age-related cataract, left eye (principal); E11.3293 Type 2 diabetes mellitus with mild nonproliferative diabetic retinopathy without macular edema, bilateral; H43.813 Vitreous degeneration, bilateral; H53.022 Refractive amblyopia, left eye; Z79.4 Long term (current) use of insulin; Z79.84 Long term (current) use of oral hypoglycemic drugs; I10 Essential (primary) hypertension; E78.00 Pure hypercholesterolemia, unspecified; Z87.891 Personal history of nicotine dependence
CPT/HCPCS: A9270-GY; J3010; V2632

== ENCOUNTER 2018-09-20 08:05 | Day surgery (SDC) | payer OTHER ==
[2018-09-20] MEDS ORDERED: fentaNYL* 50 MCG/ML 2 ML VIAL (100 MCG VIAL) ONE (10:30)
[2018-09-20 11:18] VITALS: BP 161/73
--- NOTE | 2018-09-20 12:27 | OP ---
OPERATIVE NOTE: DATE OF OPERATION: 09/20/18 DATE OF : 56 SURGEON: Deniz King MD PREOPERATIVE DIAGNOSIS: Cataract right eye. POSTOPERATIVE DIAGNOSIS: Cataract right eye. OPERATIVE PROCEDURE: Extracapsular cataract extraction with intraocular lens implant right eye. PROCEDURE: The patient was brought to the operating room after being given 1/2% Alcaine with epineph rine drops in the preoperative area. The eye was prepped and draped in the usual sterile fashion. S terile drape and eyelid speculum were placed. Again, topical 1/2% Alcaine with epinephrine was given . A paracentesis incision was made at the 9 o'clock position with the No.75 blade. Clear cornea inc ision 2.2 x 2.2-mm was created at the 12 o'clock position starting at the anterior limbus using the 2 .2-mm keratome. The anterior chamber was irrigated with 0.4 mL of 1% non-preservative intracameral l idocaine and filled with DisCoVisc. A capsulorrhexis was completed using the cystotome and the Utrat a forceps. Hydrodissection was performed with balanced salt solution. The lens nucleus was removed w ith the Phacoemulsification handpiece without incident. Cortex was removed with the irrigation-aspir ation handpiece. The capsular bag was re-inflated using DisCoVisc and an SN60WF 23.5 implant was ins erted with the shooter. The irrigation-aspiration handpiece was used to remove all residual DisCoVis c. The eye was refilled with balanced salt solution and the wound checked and found to be watertight . Topical Maxitrol drops were given. [id number]/[facility] #: [id number]
[2018-09-20] MEDS ORDERED: Neomycin/Polymy/Dex OPTH.SUSP* MAXITROL 0.1% 5 ML ONE (12:53)
[2018-09-20] MEDS ORDERED: Lidocaine 2% EPI 1:200000 MPF*10-20 ML VIAL ONE (12:53)
[2018-09-20] MEDS ORDERED: Ketorolac 0.5% OPHTH (NF) 0.5 % 5 ML BTL ONE (12:53)
[2018-09-20] MEDS ORDERED: acetaZOLAMIDE TAB* 250 MG ONE (12:53)
[2018-09-20] MEDS ORDERED: Cyclopentolate 1% OPTH.SOL* 2 ML BTL ONE (12:53)
[2018-09-20] MEDS ORDERED: Proparacaine 0.5% OPHTH.SOL* 15 ML BTL ONE (12:53)
[2018-09-20] MEDS ORDERED: Lidocaine 1%* 5 ML VIAL ONE (12:53)
[2018-09-20] MEDS ORDERED: Povidone Iodine 5% OPTH* 30 ML BTL ONE (12:53)
== END 2018-09-20 11:20 | disposition home or self-care (01) ==
LOC: OREAST 08:05
PROVIDERS: ATTEND Specialist
DX: H25.811 Combined forms of age-related cataract, right eye (principal); E11.3293 Type 2 diabetes mellitus with mild nonproliferative diabetic retinopathy without macular edema, bilateral; Z79.4 Long term (current) use of insulin; Z79.84 Long term (current) use of oral hypoglycemic drugs; H53.022 Refractive amblyopia, left eye; I10 Essential (primary) hypertension; Z88.0 Allergy status to penicillin; E78.00 Pure hypercholesterolemia, unspecified; Z87.891 Personal history of nicotine dependence
CPT/HCPCS: A9270-GY; J3010; V2632